=== PATIENT | male | born 1980 | race Caucasian/White ===

== ENCOUNTER 2019-11-25 10:30 | Outpatient (REF) | payer SELFPAY ==
[2019-11-25 20:06] LABS: BUN 11 mg/dL (7-18); CREATININE 0.83 mg/dL (0.70-1.30); Calcium 9.4 mg/dL (8.5-10.1); Calculated LDL 209 mg/dL (<100); Chloride 105 mmol/L (98-107); Cholesterol 274 mg/dL (<200); Glucose 108 mg/dL (74-106); HDL Cholesterol 42 mg/dL (40-60); Potassium 4.5 mmol/L (3.5-5.1); Sodium 143 mmol/L (136-145); Triglyceride 115 mg/dL (<150)
== END 2019-11-25 10:50 ==
LOC: NCHCN 10:30
PROVIDERS: PCP Nurse Practitioner Family; Visit Provider Nurse Practitioner Family
DX: E78.2 Mixed hyperlipidemia (principal)
CPT/HCPCS: 80048; 80061

== ENCOUNTER 2023-03-16 17:27 | Outpatient (REF) | payer SELFPAY ==
[2023-03-18 13:34] LABS: HSV 1 DNA Result Negative (Negative); HSV 2 DNA Result Negative (Negative); Varicella Zoster DNA Result Negative ((See Note))
== END 2023-03-16 17:28 | disposition home or self-care (01) ==
LOC: LBN 17:27
PROVIDERS: PCP Nurse Practitioner Family; Visit Provider Nurse Practitioner Family
DX: L28.2 Other prurigo (principal)
CPT/HCPCS: 87077; 87529; 87798; 87070; 87186; 87205

== ENCOUNTER 2023-03-19 14:57 | Emergency (ER) | payer SELFPAY ==
[2023-03-19] VITALS (27 sets, daily range): BP systolic 119–168; BP diastolic 67–110; PULSE 68–123; RESP 16; TEMP 36.7–37; O2SAT 95–100
--- NOTE | 2023-03-19 15:58 | W.ED.GENAD ---
HPI General Stated Complaint: RashLesion SABINE: 3 Date/Time Provider Initiated Documentation: 03/19/23 15:43. HPI Narrative: 42-year-old male presents with 1 month of progressive rash right upper extremity warm, painful, recently started on Bactrim for suspected staphylococcal infection. Also has rash on left forearm left lower extremity and lower abdomen. No family members with similar symptoms. No new clothing no new detergents. Lives at home with a dog. No mucosal involvement. Patient does have history of eczema Related Data Home Medications Medication Instructions Recorded Confirmed clindamycin HCl 300 mg capsule 300 mg PO QID 7 days #28 caps 03/19/23 gabapentin 100 mg capsule 100 mg PO DAILY 03/19/23 03/19/23 sulfamethoxazole 400 2 tab PO BID 03/19/23 03/19/23 mg-trimethoprim 80 mg tablet (Bactrim) Previous Rx's Medication Instructions Recorded clindamycin HCl 300 mg capsule 300 mg PO QID 7 days #28 caps 03/19/23 Allergies Allergy/AdvReac Type Severity Reaction Status Date / Time bacitracin Allergy Unverified 03/19/23 15:06 [From Neosporin ([id number])] neomycin Allergy Unverified 03/19/23 15:06 [From Neosporin ([id number])] polymyxin B Allergy Unverified 03/19/23 15:06 [From Neosporin ([id number])] Review of Systems Narrative: Review of Systems Constitutional: negative Eyes: negative ENT: negative Cardiovascular: negative Respiratory: negative Gastrointestinal: negative : negative Musculoskeletal: negative Skin: Rash Neurologic: negative Psych: negative PFSH All Active Problems (Updated 03/19/23 @ 20:08 by Qasim Marie MD) Cellulitis (Acute) Social History Smoking/Tobacco Use Status: Never Smoking risk assessment performed?: Yes Alcohol Intake: current Alcohol Intake frequency: holidays/special occasions only Drug use: Occasionally Substance use type: marijuana Additional Social history: unable to answer privatelty Exam Narrative Exam Narrative: Physical Examination General: alert, awake, cooperative, resting comfortably, no acute distress HEENT: normocephalic, atraumatic; PERRL, EOM intact, conjunctiva normal; no nasal discharge; moist mucous membranes, oral and pharyngeal mucosa normal, tolerating secretions Neck: supple, trachea midline; full ROM Chest: normal to inspection Respiratory: normal respiratory effort, speaking in full sentences Cardiac: Tachycardia, regular rhythm, S1S2 intact, no murmurs rubs or gallops GI: abdomen soft, non-tender, non-distended; no palpable mass or hepatosplenomegaly Skin: Confluent erythema with warmth and induration to majority of right forearm dorsum of hand with overlying crusting plaque, with some serous weeping no fluctuance no purulence no crepitus; 3 small straw-colored vesicles and 1 small straw-colored bulla dorsum of right hand; small less than 1 mm macule/ulcerations left forearm at hair follicles on left forearm, cluster of crusted papules right lower abdomen and left calf Neuro: AAOx3, normal speech, moving all extremities Extremities: Full range of motion fingers wrist elbow hand Psych: Appropriate mood and affect Course Vital Signs Vital signs: Vital Signs Temperature 37.0 C 03/19/23 15:03 Pulse 123 H 03/19/23 15:03 Respiratory Rate 16 03/19/23 15:03 Blood Pressure 168/110 H 03/19/23 15:03 Pulse Oximetry 98 03/19/23 15:03 Temperature 37.0 C 03/19/23 15:03 Temperature Source Skin 03/19/23 15:03 Pulse 123 H 03/19/23 15:03 Respiratory Rate 16 03/19/23 15:03 Respiratory Effort Normal 03/19/23 15:05 Blood Pressure 168/110 H 03/19/23 15:03 Blood Pressure Position Sitting 03/19/23 15:03 Pulse Oximetry 98 03/19/23 15:03 Oxygen Delivery Method Room Air 03/19/23 15:03 Oxygen Flow Rate 0 03/19/23 15:03 Lab/Test Results Lab/Test Results: 03/19/23 15:53 Blood Blood Culture - Pending 03/19/23 15:53 Blood Blood Culture - Pending Medical Decision Making 42-year-old male presents with progressive rash to right forearm warm indurated erythematous area of skin dorsum of hand and forearm with coalescing plaque and serous weeping, no crepitus or purulence no fluctuance. Areas of small ulcerated papules at base of hair follicles left forearm and similar appearing rash right lower abdomen and left calf with overlying crusted lesions; consider multiple areas of folliculitis, with resultant streptococcal and/or staphylococcal infection to right forearm and hand; must also consider superinfected eczema given appearance of plaque at various sites. Must also consider scabies; no petechia no purpura; patient is tachycardic however appears nontoxic. Is afebrile. Hypertension likely related to discomfort. Patient currently on Bactrim, rash began well before Bactrim initiation. No mucosal involvement to suggest Mueller-Sam's or TEN; no evidence of necrotizing fasciitis however given extent of induration erythema as well as 3 small localized straw-colored vesicles on dorsum of hand and 1 small bulla, will obtain screening x-ray of forearm and hand to assess for subcutaneous air. Starting empiric clindamycin, drawing blood cultures, inflammatory markers basic labs, fluids analgesia anti-inflammatory. Patient has appointment with dermatology tomorrow morning. Disposition pending reassessment of symptoms and results. 20: 07 labs largely unremarkable, mildly elevated inflammatory markers, negative procalcitonin, afebrile nontoxic. Heart rate greatly improved after fluids and analgesia. Consider atypical eczema versus psoriasis versus scabies versus cellulitis. X-ray negative for subcutaneous air. Patient has dermatology appointment tomorrow. Will continue on clinda. Given strict return precautions for any worsening symptoms. Quality:SDOH Health Related Social Needs: No Data to Display Discharge Plan Disposition Patient Disposition: Home Condition: Stable Discharge Details Clinical Impression: Cellulitis Primary Care Provider: Deisy Hagen ED Provider: Qasim Marie Home Meds and New Rx's Prescriptions: New clindamycin HCl 300 mg capsule 300 mg PO QID 7 Days Qty: 28 0RF No Action sulfamethoxazole-trimethoprim [Bactrim] 400-80 mg tablet 2 tab PO BID gabapentin 100 mg capsule 100 mg PO DAILY Discharge Instructions Instructions: Cellulitis (ED) Additional Instructions: Please take medication as prescribed. Follow-up closely with your assisted living administrator tomorrow. Please return the emergency department for any worsening symptoms.
[2023-03-19] MEDS: CLINDAMYCIN 600 MG/50 ML BAG 100 MG IVPB (16:25)
[2023-03-19] MEDS: Normal Saline 1,000 ML 1000 ML IV (16:25)
[2023-03-19] MEDS: ACETAMINOPHEN 1,000 MG/100 ML BTL 400 MG IVPB (16:25)
[2023-03-19 16:29] LABS: Abs Immature Grans 0.08 10^3/uL (0.0-0.06); Absolute Basophil Count 0.07 10^3/uL (0.0-0.2); Absolute Eosinophil Count 0.44 10^3/uL (0.0-0.7); Absolute Lymphocyte Count 0.96 10^3/uL (1.2-3.4); Absolute Monocyte Count 0.92 10^3/uL (0.1-0.8); Basophils % 1.1; HCT 45.6 % (40.0-50.0); HGB 15.6 g/dL (13.5-17.5); Immature Grans % 1.3; Lymphocytes % 15.3; MCH 30.9 pg (27.0-33.0); MCHC 34.2 % (32.0-36.0); MCV 90 fL (80-95); MPV 8.9 fL (8.0-11.0); Monocytes % 14.7; Neutrophils % 60.6; Platelet Count 269 10^3/uL (130-400); RBC 5.05 10^6/uL (4.36-5.78); RDW 12.3 % (11.8-14.1); RDW-SD 40.5 fL; WBC 6.27 10^3/uL (4.4-10.8)
[2023-03-19 16:31] LABS: ESR 14 mm/hr (0-15)
[2023-03-19 16:43] LABS: ALT 125 U/L (16-63); AST 66 U/L (15-37); Alkaline Phosphatase 84 U/L (46-116); Anion Gap 9.7 mmol/L (3-11); BUN 13 mg/dL (7-18); Bilirubin, Total 0.2 mg/dL (0.2-1.0); C-Reactive Protein 0.58 mg/dL (0.0-0.3); CO2 27.3 mmol/L (21.0-32.0); CREATININE 1.1 mg/dL (0.70-1.30); Calcium 9.4 mg/dL (8.5-10.1); Chloride 101 mmol/L (98-107); Estimated GFR 84.89 (mL/min/1.73m2); Glucose 97 mg/dL (74-106); Potassium 3.9 mmol/L (3.5-5.1); Sodium 138 mmol/L (136-145); Total Protein 8.1 g/dL (6.4-8.2)
[2023-03-19 17:00] LABS: Procalcitonin < 0.1 ng/mL
--- NOTE | 2023-03-19 18:15 | DI.RAD_ITS ---
Exam(s) XR FOREARM RT XR HUMERUS RT EXAM: XR FOREARM RT and XR humerus RT CLINICAL HISTORY: soft tissue inflam;assessing for subq gas. TECHNIQUE: 2D digital imaging was performed of the left humerus and forearm. Four views were obtain ed. AP and lateral views were obtained. COMPARISON: No priors for comparison. FINDINGS: BONES: No acute fracture is present. No bony destructive lesion is seen. Visualized portion of elbow and wrist joints are unremarkable. SOFT TISSUE: There is soft tissue swelling in the upper and lower arm. No soft tissue gas is seen. The visualized lung field is clear. No radiopaque foreign bodies are seen. IMPRESSION: 1. No acute fracture or dislocation in the humerus or forearm. 2. Soft tissue swelling seen in the upper and lower right arm. This may reflect cellulitis. 3. No soft tissue gas is present. No radiopaque foreign body is seen. DATA REPOSITORY: RADIATION DOSE DELIVERED:
[2023-03-19] MEDS: Ketorolac 15 MG/ML VIAL IVP (18:40)
[2023-03-19 18:44] LABS: MRSA PCR Negative (Negative)
--- NOTE | 2023-03-19 19:57 | DI.VRAD_ITS ---
PROCEDURE INFORMATION: Exam: XR Right Humerus Exam date and time: 03/19/2023 7:30 PM Age: 42 years old Clinical indication: Other: Soft tissue inflam; Assessing for subq gas TECHNIQUE: Imaging protocol: Radiologic exam of the right humerus. Views: 2 or more views. COMPARISON: No relevant prior studies available. FINDINGS: Bones/joints: No focal osseous lesions are identified. There is no focal osseous destruction or abnormal periosteal reaction to suggest acute osteomyelitis. There are no acute displaced fractures or subluxations. Soft tissues: There is no soft tissue gas. Findings suggest mild soft tissue swelling posterior to the right elbow. IMPRESSION: 1. No soft tissue air identified. 2. Findings suggest mild soft tissue swelling posterior to the right elbow, which could reflect cellulitis. Recommend clinical correlation. Dictated and Authenticated by: Armen Hernandez MD. Ordering:CARLTON Tripp MD
--- NOTE | 2023-03-19 19:58 | DI.VRAD_ITS ---
PROCEDURE INFORMATION: Exam: XR Right Forearm Exam date and time: 03/19/2023 7:21 PM Age: 42 years old Clinical indication: Other: Soft tissue inflam; Assessing for subq gas TECHNIQUE: Imaging protocol: Radiologic exam of the right forearm. Views: 2 views. COMPARISON: No relevant prior studies available. FINDINGS: Bones/joints: Osseous mineralization is normal. There are no inflammatory osseous erosive changes. The joint spaces are maintained without degenerative changes. No focal osseous lesions are identified. There is no focal osseous destruction or abnormal periosteal reaction to suggest acute osteomyelitis. There is no evidence for elbow joint effusion. There are no acute displaced fractures or subluxations. Soft tissues: There is no soft tissue gas. Findings suggest mild soft tissue swelling posterior to the proximal ulna and radius. IMPRESSION: 1. No soft tissue gas identified. 2. Findings suggest mild soft tissue swelling posterior to the proximal radius and ulna, which could reflect cellulitis. Recommend clinical correlation. Dictated and Authenticated by: Armen Hernandez MD. Ordering:CARLTON Tripp MD
== END 2023-03-19 20:20 | disposition home or self-care (01) ==
PROVIDERS: Emergency Provider Emergency Medicine; PCP Nurse Practitioner Family
DX: L03.116 Cellulitis of left lower limb (principal); L03.114 Cellulitis of left upper limb; L03.113 Cellulitis of right upper limb; L03.311 Cellulitis of abdominal wall
CPT/HCPCS: 80053; 84145; 85652; 87040; 87641; 96365; 96375; 99283; 73060; 73090; 85025; 86140; J0131; J0737; J1885

== ENCOUNTER 2023-05-19 09:03 | Outpatient (REF) | payer SELFPAY ==
[2023-05-19 14:45] LABS: Hemoglobin A1C 5.5 % (<5.7)
[2023-05-19 14:53] LABS: ALT 36 U/L (16-63); AST 21 U/L (15-37); Albumin 4.1 g/dL (3.4-5.0); Alkaline Phosphatase 61 U/L (46-116); Anion Gap 8.8 mmol/L (3-11); BUN 13 mg/dL (7-18); Bilirubin, Total 0.3 mg/dL (0.2-1.0); CO2 27.2 mmol/L (21.0-32.0); CREATININE 0.8 mg/dL (0.70-1.30); Calcium 9.3 mg/dL (8.5-10.1); Calculated LDL 183 mg/dL (<100); Chloride 105 mmol/L (98-107); Cholesterol 270 mg/dL (<200); Estimated GFR 111.92 (mL/min/1.73m2); Glucose 108 mg/dL (74-106); HDL Cholesterol 48 mg/dL (40-60); Potassium 4.2 mmol/L (3.5-5.1); Sodium 141 mmol/L (136-145); Total Protein 7.5 g/dL (6.4-8.2); Triglyceride 199 mg/dL (<150)
== END 2023-05-19 09:04 | disposition home or self-care (01) ==
LOC: NCHCN 09:03
PROVIDERS: PCP Nurse Practitioner Family; Referring Provider Family Medicine; Visit Provider Family Medicine
DX: I10 Essential (primary) hypertension (principal)
CPT/HCPCS: 80053; 80061; 83036

== ENCOUNTER 2024-03-17 09:30 | Outpatient (REF) | payer OTHER, SELFPAY ==
--- OUTSIDE RECORDS SUMMARY | 2024-03-17 09:33 | XMS_ITS | Encounter Summary ---
[place] [address] Care Team Providers Care Button Maker Name Role Phone Kirit Ashraf MD Primary Care Provider [phone] Reason for Visit * Reason Comments Low Back Pain Encounter Details Date Type Department Care Team (Latest Contact Info) Description 06/04/2016 10:40 AM EDT Office [place] [address] Shamar Chaney MD [facility] [place] [address] Lumbosacral radiculopathy at S1 Social History Tobacco Use Types Packs/Day Years Used Date Smoking Tobacco: Former Smokeless Tobacco: Never Comments:quit 10 years ago Alcohol Use Standard Drinks/Week Comments Yes 6 (1 standard drink = 0.6 oz pur e alcohol) Sex and Gender Information Value Date Recorded Sex Assigned at Not on file Gender Identity Not on file Sexual Orientation Not on file documented as of this encounter Progress Notes * Shamar Chaney MD - 06/04/2016 10:[address] Kirit Ashraf [address] [address] [address] Ashraf: I had the pleasure of seeing this patient back in followup. SPINE PROCEDURE: Right L5-S1 microdiskectomy with large disk herniation involving part of the end plate on 05/20/2016 without complication. DIAGNOSES: 1. Right lower extremity S1 radiculopathy, severe with weakness, fortified gastroc, as well as numbness. 2. History of chronic back pain at base of his spine. SUMMARY AND PLAN: I had the pleasure of seeing this patient back in followup. He has done quite well postoperatively. His incision is clean, dry, and intact. He has weakness with a single heel raise consistent with surgery but improved. Negative straight leg raise. He has numbness on the outside of his foot. He is scheduled for PT next Thursday. He is going to work on proprioception as well as strengthening and work with a physical therapist. I have asked him to be excused from work for 2 weeks and work with the therapist. If he is doing better, he can contact us and we can get him back to work sooner. All questions were answered. Shamar Chaney MD MS Animator - Orthopedic Spine Surgery / Spine Center Type Copy Examiner - Department of Orthopedic Surgery / [employer] Administrative Receptionist - [facility] 06/04/2016 documented in this encounter Plan of Treatment Not on file documented as of this encounter Visit Diagnoses Diagnosis Lumbosacral radiculopathy at S1 Thoracic or lumbosacral neuritis or radiculitis, unspecified documented in this encounter Care Teams Button Maker Relationship Specialty Start Date End Date Kirit Ashraf MD [address] [place] [address] PCP - General Family Medicine 04/23/16 02/23/18 documented as of this encounter
--- OUTSIDE RECORDS SUMMARY | 2024-03-17 09:33 | XMS_ITS | Encounter Summary ---
[place] [address] Care Team Providers Care Gas Main Fitter Helper Name Role Phone Kirit Ashraf MD Primary Care Provider [phone] Reason for Visit * Reason Onset Date Comments Pre Procedure Call 05/02/2016 re medication holds preop, opioid consent, non opioid pain mgmt strategies, and risk asmt Encounter Details Date Type Department Care Team (Late st Contact Info) Description 05/02/2016 Telephone [place] [address] Salma Del Toro, RN Pre Procedure Call (re medication holds preop, opioid consent, non opioid pain mgmt strategies, and risk asmt) Social History Tobacco Use Types Packs/Day Years Used Date Smoking Tobacco: Former Smokeless Tobacco: Never Comments:quit 10 years ago Alcohol Use Standard Drinks/Week Comments Yes 0 (1 standard drink = 0.6 oz pur e alcohol) occasional use Sex and Gender Information Value Date Recorded Sex Assigned at Not on file Gender Identity Not on file Sexual Orientation Not on file documented as of this encounter Miscellaneous Notes * Telephone Encounter - Salma Del Toro RN - 05/02/2016 9:57 AM EST Met with pt today following the surgical evaluation, advised pt of need to hold anticoagulants, NSAIDs, ASA products, and FishOil for ~10 days preoperatively. Reviewed medication list. Patient is not noted to be on any anticoagulants, fish oil or ASA Patient agreed to hold Ibuprofen and other NSAIDS as instructed. Opioid PDMP 05/02/2016 [place] PDMP Query Date 05/02/2016 Comment 05/02/16 1 yr query run; no report found [place] PDMP Query Date 05/02/2016 Comment 05/02/16 1 yr query run; No concerns noted. Opioid Risk Asmt Performed and documented. Score: Low Risk with a score of 1 secondary to age. Patient received and signed Acute Opioid Therapy Informed Consent. Reviewed salient points with pt.Pt denies any questions or concerns. Consent form passed to OR car designer for scanning. Reviewed with pt the non opioid pain mgmt strategies that should be put in place both pre and postoperatively to minimize opioid use; strategies include: activity modification, regular Acetaminophen & Ibuprofen use, ice application for local analgesia, regular rest periods, and relaxation. Explained that the non-opioid pain mgmt strategies noted above are the first line to assist with their postop pain; that the opioid pain medication that will be ordered is to be used to supplement the non-opioid methods. Advised pt that he is to take the least amt of opioid possible and the intent is to reduce use as the postoperative pain subsides. Explained that he should never exceed the prescribed amt without obtaining authorization from someone on the surgical care team. Explained that thegoal is not to be pain free but rather have the postoperative pain manageable to allow for the the expected restricted activities. Copy of [facility] Preoperative Reference sheet provided to pt; reviewed the documented educational information with pt. Copy of the [facility] Prescription Refill policy given and reviewed with pt. Pt verbalized understanding of the information reviewed.. Pt has Spine Center Nursing contact information; encouraged to call pre or postoperatively with any questions or concerns. documented in this encounter Plan of Treatment Not on file documented as of this encounter Visit Diagnoses Not on filedocumented in this encounter Care Teams Gas Main Fitter Helper Relationship Specialty Start Date End Date Kirit Ashraf MD [address] [place] [address] PCP - General Family Medicine 04/23/16 02/23/18 documented as of this encounter
--- OUTSIDE RECORDS SUMMARY | 2024-03-17 09:33 | XMS_ITS | Encounter Summary ---
[place] [address] Care Team Providers Care Cone Runner Name Role Phone Kirit Ashraf MD Primary Care Provider [phone] Reason for Visit * Reason Onset Date Comments Follow-up 05/23/2016 checking in on p t postoperatively Encounter Details Date Type Department Care Team (Late st Contact Info) Description 05/23/2016 Telephone [place] [id number] Salma Del Toro, RN Follow-up (checking in on pt postoperatively) Social History Tobacco Use Types Packs/Day Years [...] Notes * Telephone Encounter - Salma Del Toro, RN - 05/23/2016 12:24 PM EST Call placed to pt on Dr Chaney's behalf to check how he's doing postoperatively. Mr Junior is s/p Decompression, Discectomy L5-S1 on Tu05/20/[address] Chaney for L5-S1 HNP. Pt has scheduled FU 06/04/16. Pt reports he is doing quite well; Reports POD # 3 is much better than # 2. Reports preoperatively right leg pain is improved; N/T in right foot remains present but is improved. Pt is up ambulating regularly and is taking minimal amts of opioids, Reports has reduced use of oxycodone 5 mg to twice daily. Reports plans to remove original surgical drsg later today. Reviewed care with re to incision. Pt has not moved bowels since surgery; denies pain or distention. Povided [place] with some suggestions re fluid intake, increased fruit/fiber and OTC medications. 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 Explained that if he feels prepared to return to work in advance of the 4 wks, that he can discuss this with Dr Chaney on 06/04 or he can call the [facility] office anytime M_F 8-5 and we will help facilitate Advised pt that next week, if he considers his job demands and his functional status, and thinks he would benefit from physical therapy to facilitate a smoother RTW transition ~ 4 wks post op, to call and we can facilitate a external PT referral/ Pt verbalized understanding and will call [place] with any questions or concerns. documented in this encounter Plan of Treatment Not on file documented as of this encounter Visit Diagnoses Not on filedocumented in this encounter Care Teams Cone Runner Relationship Specialty Start Date End Date Kirit Ashraf MD [address] [place] [address] PCP - General Family Medicine 04/23/16 02/23/18 documented as of this encounter
--- OUTSIDE RECORDS SUMMARY | 2024-03-17 09:33 | XMS_ITS | Referral Summary ---
Author Organization [facility] Address [address] [place] [id number] Care Team Providers Care Veterans Service Officer Name Role Phone Unknown, Provider Primary Care Provider Unava ilable Social History Tobacco Use Types Packs/Day Years Used Date Smoking Tobacco: Never Assessed Sex and Gender Information Value Date Recorded Sex Assigned at Not on file Legal Sex Male 18:13 EST Gender Identity Not on file Sexual Orientation Not on file Plan of Treatment Not on file Care Teams Veterans Service Officer Relationship Specialty Start Date End Date Unknown, Provider, PCP - General 05/05/16
--- OUTSIDE RECORDS SUMMARY | 2024-03-17 09:33 | XMS_ITS | Encounter Summary ---
[place] [address] Care Team Providers Care Anesthesiology Faculty Name Role Phone Shiela Hirsch MD Primary Care Provider [phone] Encounter Details Date Type Department Care Team (Latest Contact Info) Description 03/20/2023 Travel Social History Tobacco Use Types Packs/Day Years Used Date Smoking Tobacco: Former Smokeless Tobacco: Never Comments:quit 10 years ago Alcohol Use Standard Drinks/Week Comments Yes 6 (1 standard drink = 0.6 oz pur e alcohol) Sex and Gender Information Value Date Recorded Sex Assigned at Not on file Gender Identity Not on file Sexual Orientation Not on file documented as of this encounter Plan of Treatment Not on file documented as of this encounter Visit Diagnoses Not on filedocumented in this encounter Care Teams Anesthesiology Faculty Relationship Specialty Start Date End Date Shiela Hirsch MD [address] [place] [address] PCP - General Family Medicine 03/20/23 documented as of this encounter
--- OUTSIDE RECORDS SUMMARY | 2024-03-17 09:33 | XMS_ITS | Encounter Summary ---
Author Organization [facility] Address [facility] [place] [address] Care Team Providers Care Advertising Statistical Clerk Name Role Phone Kirit Ashraf MD Primary Care Provider Encounter Details Date Type Department Care Team (Latest Contact Info) Description 04/30/2016 - 04/30/2016 11:59 PM EST Hospital Encounter Radiology Library at [facility] [place] [address] Shamar Chaney MD [facility] [place] [address] Pain Discharge Disposition: Home Social History Tobacco Use Types Packs/Day Years Used Date Smoking Tobacco: Former Smokeless Tobacco: Never Comments:quit 10 years ago Sex and Gender Information Value Date Recorded Sex Assigned at Not on file Gender Identity Not on file Sexual Orientation Not on file documented as of this encounter Medications at Time of Discharge Medication Sig Dispensed Refills Start Date End Date acetaminophen (TYLENOL) 500 mg Tablet Take 1,000 mg by mouth every 6 hours as needed for Pain. oxyCODONE (ROXICODONE) 5 mg Tablet Take 1 tablet by mouth every 4 hours as needed. 40 tablet 05/20/2016 06/04/2016 gabapentin (NEURONTIN) 100 mg Capsule Take 100 mg by mouth 3 times daily. Reported on 05/02/2016 0 04/22/2016 05/26/2016 predniSONE (DELTASONE) 20 mg Tablet Take 20 mg by mouth daily. 0 04/21/2016 05/02/2016 triamcinolone (KENALOG) 0.1 % Cream apply topically to affected area twice a day 0 02/04/2016 05/20/2016 ibuprofen (ADVIL;MOTRIN) 200 mg Tablet Take 600 mg by mouth every 6 hours as needed for Pain. 03/27/2023 documented as of this encounter Plan of Treatment Not on file documented as of this encounter Procedures Procedure Name Priority Date/Time Associated Diagnosis Comments FILM LIBRARY STORAGE ONLY MR SPINE Routine 04/30/2016 12:00 AM EST Pain documented in this encounter Results * Film Library- Storage Only MR Spine (04/30/2016 12:00 AM EST) Narrative [facility] - 04/30/2016 4:11 PM EST This exam is for storage only and is auto-finalizing. Shamar Chaney MD [facility] FILM LIBRARY ORD ERABLES [place], [place] documented in this encounter Visit Diagnoses Diagnosis Pain Generalized pain documented in this encounter Care Teams Advertising Statistical Clerk Relationship Specialty Start Date End Date Kirit Ashraf MD [address] [place] [address] PCP - General Family Medicine 04/23/16 02/23/18 documented as of this encounter
--- OUTSIDE RECORDS SUMMARY | 2024-03-17 09:33 | XMS_ITS | Encounter Summary ---
Author Organization [facility] Address [address] [place] [address] Care Team Providers Care Signal Operator Technical Name Role Phone Unknown, Provider Primary Care Provider Gracia ilanusha Encounter Details Date Type Department Care Team (Late st Contact Info) Description 03/17/2023 Lab Requisition [facility] Pathology & Laboratory Medicine - [facility] [address], [place] [id number] Outr Resulting Lab, Provider Social History Tobacco Use Types Packs/Day Years [...] Procedure Name Priority Date/Time Associated Diagnosis Comments VARICELLA ZOSTER VIRUS MOLECULAR DETECTION, PCR Routine 03/16/2023 14:45 EST HSV (HERPES SIMPLEX VIRUS) MOLECULAR DETECTION, PCR Routine 03/16/2023 14:45 EST documented in this encounter Results * VARICELLA ZOSTER VIRUS MOLECULAR DETECTION, PCR (03/16/2023 14:45 EST) VARICELLA ZOSTER VIRUS MOLECULAR DETECTION, PCR Negative Negative, Invalid 03/18/2023 13:28 EST [facility] Comment: This test was developed and its performance characteristics determined by [facility]. It has not been cleared or approved by the US Food and Drug Administration. FDA does not require this test to go through premarket FDA review. This test is used for clinical purposes. It should not be regarded as investigational or research. This laboratory is certified under the Clinical Laboratory Improvement Amendments (CLIA) as qualified to perform high complexity clinical laboratory testing. Swab UPPER LIMB STRUCTURE / Unknown 03/16/2023 14:45 EST 03/17/2023 21:45 EST us Provider Outr Resulting Lab MICROBIOLOGY - GENER AL ORDERABLES Final Result Performing Organization Address City/[facility] Co de Phone Number [facility] [address] [place] [address] * HSV (HERPES SIMPLEX VIRUS) MOLECULAR DETECTION, PCR (03/16/2023 14:45 EST) Herpes Simplex Virus Molecular Detection 1, PCR Negative Negative 03/18/2023 13:28 EST [facility] Herpes Simplex Virus Molecular Detection 2, PCR Negative Negative 03/18/2023 13:28 EST [facility] Swab UPPER LIMB STRUCTURE / Unknown 03/16/2023 14:45 EST 03/17/2023 21:45 EST us Provider Outr Resulting Lab MICROBIOLOGY - GENER AL ORDERABLES Final Result Performing Organization Address City/[facility] Co de Phone Number [facility] [address] [place] [address] documented in this encounter Visit Diagnoses Not on filedocumented in this encounter Care Teams Signal Operator Technical Relationship Specialty Start Date End Date Unknown, Provider, PCP - General 05/05/16 documented as of this encounter
--- OUTSIDE RECORDS SUMMARY | 2024-03-17 09:33 | XMS_ITS | Encounter Summary ---
[place] [address] Care Team Providers Care Production Machinist Name Role Phone Shiela Hirsch MD Primary Care Provider [phone] Encounter Details Date Type Department Care Team (Latest Contact Info) Description 03/27/2023 Travel Social History Tobacco Use Types Packs/Day [...] on filedocumented in this encounter Care Teams Production Machinist Relationship Specialty Start Date End Date Shiela Hirsch MD [address] [place] [address] PCP - General Family Medicine 03/20/23 documented as of this encounter
--- OUTSIDE RECORDS SUMMARY | 2024-03-17 09:33 | XMS_ITS | Encounter Summary ---
Author [facility] [place] [address] Care Team Providers Care Manufacturer Agent Name Role Phone Kirit Ashraf MD Primary Care Provider Reason for Visit * Reason Comments Follow-up Encounter Details Date Type Department Care Team (Latest Contact Info) Description 05/02/2016 8:40 AM EST [place] [address] Shamar Chaney MD [facility] [place] [address] Lumbosacral radiculopathy at S1 Social History Tobacco [...] Progress Notes * Shamar Chaney MD - 05/02/2016 8:40 AM EST Images from the original note were not included. May 02, 2016 Kirit Ashraf MD [address] Ashraf, I had the pleasure of seeing this patient back in followup for surgical consultation at [facility] for chief complaint of right lower extremity radiculopathy in an S1 distribution. DIAGNOSIS: 1. Right lower extremity S1 radiculopathy, severe with weakness. 2. History of chronic back pain, base of spine. This is an update and visit. The patient returned and we reviewed together his MRI, which shows an L5-S1 disk herniation with caudad migration severely compressing the traversing the S1 nerve root. He remains standing today. He is unable to sit and sleep. He has continued weakness of his gastroc. The primary reason for his visit today was counseling around surgical intervention. I explained to him using the models and images to explain the microdiskectomy. We discussed the risk of spinal fluid leak, recurrent disk herniation, persistent neuropathic pain and persistent weakness and numbness. I explained the procedure in detail, including the incision of the approach access to the spinal canal, movement of the nerve roots and removal of the free fragment. We talked about the preoperative and postoperative course and reasonable expectations concerning his work status. He does do most of his work on a computer and standing. However, I would like him to take off 4 weeks minimum. I would like to see him back in 2 weeks for reevaluation and possible reevaluation by physical therapy. More than 50% of 45 minutes were utilized around counseling, as above, answering all questions. We will schedule him at the next possible date. Consents are reviewed and signed. Narcotic consent was also obtained as part of the counseling process. Spine Center Response Trends Patient-reported scores: myD-H Spine Questionnaire responses 04/25/2016 VR36 - Physical Function (Range: 0-100) 21.9 VR36 - Bodily Pain (Range: 0-100) 23.3 VR36 - PCS (Range: 0-100) 32.1 VR36 - MCS (Range: 0-100) 43.7 Oswestry Disability Index (Range: 0-100) 68 (Crippled) documented in this encounter Plan of Treatment Not on file documented as of this encounter Visit Diagnoses Diagnosis Lumbosacral radiculopathy at S1 Thoracic or lumbosacral neuritis or radiculitis, unspecified documented in this encounter Care Teams Manufacturer Agent Relationship Specialty Start Date End Date Kirit Ashraf MD [address] [place] [address] PCP - General Family Medicine 04/23/16 02/23/18 documented as of this encounter
--- OUTSIDE RECORDS SUMMARY | 2024-03-17 09:33 | XMS_ITS | Clinical Summary ---
Author Organization [facility] Address [facility] [place] [address] Care Team Providers Care Sole Splitter Name Role Phone Shiela Hirsch MD Primary Care Provider [phone] Allergies Active Allergy Reactions Criticality Noted Date Comments Hydrocortisone Rash 04/25/2016 Medications Medication Sig Dispensed Refills Start Date End Date Status acetaminophen (TYLENOL) 500 mg Tablet Take 1,000 mg by mouth every 6 hours as needed for Pain. Active gabapentin (NEURONTIN) 100 mg Capsule Take 1 capsule by mouth 2 times daily. 60 capsule 1 05/26/2016 Active Additional Information Patient not taking.Reported on 03/20/2023 triamcinolone (Kenalog) 0.1 % Cream Apply thin layer topically to affected areas on a twice daily basis. 80 g 1 03/20/2023 Active predniSONE (Deltasone) 20 mg tablet Take 4 tablets by mouth daily (80 mg) for 3 days starting with the first dose this evening and then every morning for 2 more doses, then decrease to 3 tablets by mouth daily (60mg) every morning for 5 days, then 2 tablets by mouth daily (40mg) for 5 days, then 1 tablet by mouth daily (20mg) for 5 days, then 1 tablet by mouth (20mg) every other day for 1 week then discontinue. 48 tablet 03/20/2023 Active Active Problems Problem Noted Date Diagnosed Date Lumbosacral radiculopathy at S1 04/25/2016 Social History Tobacco Use Types Packs/Day Years Used Date Smoking Tobacco: Former Smokeless Tobacco: Never Comments:quit 10 years ago Alcohol Use Standard Drinks/Week Comments Yes 6 (1 standard drink = 0.6 oz pur e alcohol) Sex and Gender Information Value Date Recorded Sex Assigned at Not on file Gender Identity Not on file Sexual Orientation Not on file Last Filed Vital Signs Vital Sign Reading Time Taken Comments Blood Pressure 123/81 05/20/2016 10:01 AM EST Pulse 85 05/20/2016 9:45 AM EST Temperature 37 ??C (98.6 ??F) 05/20/2016 9:45 AM EST Respiratory Rate 16 05/20/2016 9:45 AM EST Oxygen Saturation 99% 05/20/2016 10:01 AM EST Inhaled Oxygen Concentration - - Weight 108.4 kg (239 lb) 05/20/2016 6:14 AM EST Height 188 cm (6' 2) 05/20/2016 6:14 AM EST Body Mass Index 30.69 05/20/2016 6:14 AM EST Plan of Treatment Health Maintenance Due Date Last Done Comments CT Colonography 1978 Colonoscopy 1978 Colorectal Cancer Screening 1978 FIT DNA 1978 FIT 1978 Sigmoidoscopy (10 year) with FIT yearly 1978 Sigmoidoscopy 1978 HIV screen 1996 Hepatitis C Screening 1996 Lipid Screening 1996 Hepatitis B vaccine (0-59 yrs) (1) 1997 Tetanus/Diphtheria/Pertussis Vaccines (1 - Tdap) 08/25 Covid-19 Vaccine (1 - season) 2023 Influenza (Flu) vaccine (1 o f 1 - Influenza standard series) 11/15/2023 Advance Directives * Full Code (Latest Code Status on File) Date Activated Date Inactivated Comments 05/20/2016 6:59 AM 05/20/2016 2:10 PM Question Answer Comments Does patient have capacity to make decision: Yes Care Teams Sole Splitter Relationship Specialty Start Date End Date Shiela Hirsch MD [address] [place] [address] PCP - General Family Medicine 03/20/23
--- OUTSIDE RECORDS SUMMARY | 2024-03-17 09:33 | XMS_ITS | Encounter Summary ---
[place] [address] Care Team Providers Care Farm Machinery Mechanic Name Role Phone Kirit Asrhaf MD Primary Care Provider Encounter Details Date Type Department Care Team (Late st Contact Info) Description 05/02/2016 10:20 AM EST Laboratory [place] [id number] Social History Tobacco Use Types Packs/Day Years [...] on filedocumented in this encounter Care Teams Farm Machinery Mechanic Relationship Specialty Start Date End Date Kirit Ashraf MD [address] [place] [id number] PCP - General Family Medicine 04/23/16 02/23/18 documented as of this encounter
--- OUTSIDE RECORDS SUMMARY | 2024-03-17 09:33 | XMS_ITS | Encounter Summary ---
[facility] [place] [address] Care Team Providers Care Jackhammer Splitter Operator Name Role Phone Shiela Hrisch MD Primary Care Provider [phone] Reason for Visit * Reason Comments Rash * Consultation (Routine) - Closed Specialty Diagnoses / Procedures Referred By Contalma t Referred To Contact Dermatology Diagnoses Other prurigo Rina Messer, SANDSTONE INSPECTOR REPAIRER [address] [place] [address] Edward Dennis MD [address] [place] [address], [facility] [place] [address] Referral ID Status Reason Start Date Expiration Date Visits Re quested Visits Authorized [id number] Closed 03/19/2023 03/18/2024 1 1 Encounter Details Date Type Department Care Team (Late st Contact Info) Description 03/20/2023 2:45 PM EST Office Visit Dermatology at [address] [address] Edward Dennis MD [address] [place] [address], [facility] [place], [place] [id number] Spongiotic dermatitis Social History Tobacco Use Types Packs/Day Years [...] as of this encounter Progress Notes * Edward Dennis MD - 03/20/2023 2:45 PM EST Problem: 1. New patient, initial visit 2. Skin skin rash of arms Geln is comes in today with his , Gabi. For the last month he been having a worsening rash right upper extremity and is now starting to develop lesions on the legs chest and left arm. 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 He is otherwise in good health. Over the last monththe rash is gotten progressively worse with multiple very itchy and sore vesicles on the right arm starting first around his knuckles and then extending. There is been associated swelling. More recently he has had involvement with new vesicles developing on his krueger localized areas on the chest andback. He has been seen multiple times by different providers and most recently at the emergency room at [facility]. He was given clindamycin for suspected cellulitis. He has been on 4 different antibiotics over the last month without any significant improvement. Patient has a life long history of intermittent eczema but just relatively mild involvement. He has used triamcinolone with success he has not changed his soaps or detergents. He uses fragrance free skin care products. He was to his now 3 months ago and 1 month ago he went on a 2-day trip to the [facility] but the rash had already started at that time. He was given at 1 point a prescription for prednisone 20 mg a day for 5 days but only took 2 and half days of this course because he was told to stop it. He did not notice much improvement. His only current medication is clindamycin which was started last night after the visit to the [facility] ER. Patient seen in consultation from his PCP. Physical examination reveals a pleasant 42-year-old gentleman who has a diffuse plaque involving the entire right dorsal forearm spongiotic papules with serous oozing extending from the dorsum of hishand up to just above his elbow. There is swelling and edema is affected extremity. He has less inflammation of the left anterior krueger where he has roughly a 4 x 6 cm spongiotic dermatitic plaque. Assessment plan: Eczematous dermatitis /spongiotic dermatitis flare starting on the right forearm now with auto eczematization and generalization dermatitis 1. Begin prednisone 20 mg taking 4 p.o. daily x 3 days. (80 mg). Start taking the first dose this evening and then every morning for for 2 more doses, then decrease to 60 mg p.o. every morning for 5 days, then 40 mg p.o. daily for 5 days,, then 20 mg p.o. daily For 5 days, then take 20 g every other day for 1 week then discontinue. Dispense 1 course. 2. Begin wet-to-dry dressings using T-shirt in warm water. Allow to dry then removed tissue apply triamcinolone cream which she has at home, and rewrap with again moistened T-shirt repeat several times during the day until bruising and swelling decreased. 3. Continue to keep arm elevated while at home. 4. No evidence of cellulitis, although there would clearly be some colonization of the open draining serous fluid covered plaques. 5. Return to clinic in 1 week for repeat check. 6. We will call in prescription for triamcinolone 0.1% cream apply to affected areas on a twice daily basis dispense 80 g tube with 1 refill.. Note: In review of his PCPs notes, photographs are seen demonstrate a tattoo present on that right dorsal forearm. I did not asked the patient if the tattoo was new. CC: Shiela Hirsch MD documented in this encounter Plan of Treatment Not on file documented as of this encounter Visit Diagnoses Diagnosis Spongiotic dermatitis Contact dermatitis and other eczema, due to unspecified cause documented in this encounter Care Teams Jackhammer Splitter Operator Relationship Specialty Start Date End Date Shiela Hirsch MD [address] [place] [address] PCP - General Family Medicine 03/20/23 documented as of this encounter
--- OUTSIDE RECORDS SUMMARY | 2024-03-17 09:33 | XMS_ITS | Encounter Summary ---
[place] [address] Care Team Providers Care Fire Prevention Specialist Name Role Phone Kirit Ashraf MD Primary Care Provider [phone] Reason for Visit * Auth/Cert Specialty Diagnoses / Procedures Referred By Contac t Referred To Contact Diagnoses HNP L5-S1 Procedures PRO LAMINOTOMY, LUMBAR DISK, 1 INTRSP LAMINOTOMY, DECOMPRESSION, FORAMINOTOMY, LUMBAR (WRVU 13.18) Referral ID Status Reason Start Date Expiration Date Visits Re quested Visits Authorized [id number] 1 1 Encounter Details Date Type Department Care Team (Late st Contact Info) Description 05/20/2016 7:30 AM EST - 05/20/2016 9:58 AM EST Surgery [place] [address] Shamar Chaney MD [facility] [place] [address] LAMINOTOMY, DECOMPRESSION, FORAMINOTOMY, LUMBAR (WRVU 12) Social History Tobacco Use Types Packs/Day Years Used Date Smoking Tobacco: Former Smokeless Tobacco: Never Comments:quit 10 years ago Alcohol Use Standard Drinks/Week Comments Yes 6 (1 standard drink = 0.6 oz pur e alcohol) Sex and Gender Information Value Date Recorded Sex Assigned at Not on file Gender Identity Not on file Sexual Orientation Not on file documented as of this encounter Last Filed Vital Signs Vital Sign Reading Time Taken Comments Blood Pressure 134/86 05/20/2016 9:45 AM EST Pulse 85 05/20/2016 9:45 AM EST Temperature 37 ??C (98.6 ??F) 05/20/2016 9:45 AM EST Respiratory Rate 16 05/20/2016 9:45 AM EST Oxygen Saturation 99% 05/20/2016 9:45 AM EST Inhaled Oxygen Concentration - - Weight 108.4 kg (239 lb) 05/20/2016 6:14 AM EST Height 188 cm (6' 2) 05/20/2016 6:14 AM EST Body Mass Index 30.69 05/20/2016 6:14 AM EST documented in this encounter Discharge Instructions * Discharge Instructions* Dora Rosales RN - 05/20/2016 10:15 AM EST Discharge instructions reviewed with patient and questions answered.Wound infection may occur at any time, but it is evident more often 4-7 days after surgery. Signs and symptoms may involve one or more of the followin. Temperature elevation of more than 2 degrees or greater than 100.5 degrees F 2. Swelling and redness in or around the incision. 3. Increasing pain or discomfort in or around the incision. 4. Red streaks in the skin near the incision. 5. Pus or other foul drainage from the incision. 6. Foul smell from the incision. 7. Generalized body chills or fever. 8. Severe pain. If you suspect an incisional infection is present, are having problems, or have additional questions or concerns, please call. * Patient Instructions* Obi Kaufman - 05/20/2016 9:47 AM EST Spine Surgery Discharge Instructions Procedure: Discectomy Allergies Allergen Reactions ??? Neosporin [Hydrocortisone] Rash MEDICATION: 1. If you need a renewal of your pain medication, please contact the [facility] Center Prescription Lineat [phone]. PRESCRIPTION RENEWAL REQUEST CAN TAKE UP TO 3 DAYS TO PROCESS SO PLEASE PLAN ACCORDINGLY. Some narcotic pain medications can not be called into your pharmacy and require the prescription to be picked up or mailed to your pharmacy. Call [phone] to speak with a Spine Center Nurse. 2. The pain medication you are on can cause constipation, so increase your intake of fluids and fiber while you are taking them. You should also take an [id number] stool softener, colace or senna, to facilitate a bowel movement. ACTIVITY: As tolerated, but no bending, or twisting and do not lift anything greater than 5 pounds. DIET: Eat your normal diet, with adequate amounts of protein and fiber. DRIVING: NO driving while you are on narcotic pain medication. SHOWER/BATH: You may shower with the operative dressing in place. Cover your gauze dressing with Tegaderm for first seven to ten days while showering. Following your shower you should remove the tegaderm and gauze dressing and reapply a lightly taped gauze dressing over your incision. Tegaderm should only be used while in the shower. Do not soak the incision in a bath or pool for 3 weeks. WOUND CARE: Keep the dressing in place for 72 hours. After 72 hours remove the dressing but keep the paper strips (steri-strips) in place. Change the dressing with a sterile gauze dressing. The steri-strips may begin to fall off, and you may remove them as they peel back. Change the dressing daily for 7- 10 days. After 10 days the wound can remain uncovered. After 14 days you should remove the steri-strips if they have not fallen off already. CALL YOUR SURGEON, IF YOU HAVE: ??? Fevers greater than 101.5* Fahrenheit ??? Chills or night sweats ??? Nausea or vomiting ??? Wound redness or discharge ??? Numbness or tingling in your hands or feet ??? Incontinence of bowel or bladder ??? Any questions or concerns If you have any questions call: Clinical issues, nurse questions: [phone] Medication renewal: [phone] Appointments for : Ritu: [phone] Future Appointments Date Time Provider Department Center 06/04/2016 10:40 AM Shamar Chaney MD [facility] documented in this encounter Medications at Time of Discharge [...] daily. Reported on 05/02/2016 0 04/22/2016 05/26/2016 ibuprofen (ADVIL;MOTRIN) 200 mg Tablet Take 600 mg by mouth every 6 hours as needed for Pain. 03/27/2023 documented as of this encounter Progress Notes * Liang Dominguez RN - 05/20/2016 12:05 PM EST Pt A+O x4, VSS, tolerating Po intake Pt able to ambulate without difficulty and feels ready for D/Mushroom Cultivator home at this time. AVS reviewed with Pt and partner and they have no questions or concerns at this time. Pt has script for oxycodone. * Niya Min RN - 05/20/2016 11:29 AM EST Pt sat EOB; stood and took a few steps to end of stretcher. Pt feeling lightheaded; returned to bedto rest. Denies nausea; pain is in good control. * Dora Rosales RN - 05/20/2016 10:35 AM EST Patient resting at present. He complains of right knee and thigh discomfort. Continue to monitor post op course. documented in this encounter H&P Notes * Obi Kaufman - 05/20/2016 5:37 AM EST The patient's history and physical exam have been reviewed. There has been no interval change from that of the pre-operative history and physical exam performed within the last 30 days. This patient is undergoing an orthopaedic surgical procedure. We will utilize nonpharmacological modalities to help with pain, however, this patient will require narcotic pain medication to treat acute, post-surgical, pain. The patient will be instructed to wean from these medications as soon as reasonably possible. The Patient has read, signed and understands the Acute Opioid Therapy Informed Consent. The Prescription Drug monitoring website has been queried and and this query recorded in the electronic medical record. Opioid PDMP 05/02/2016 [place] PDMP Query Date 05/02/2016 Comment 05/02/16 1 yr query run; no report found [place] PDMP Query Date 05/02/2016 Comment 05/02/16 1 yr query run; No concerns noted. documented in this encounter Miscellaneous Notes * Op Note - Shamar Chaney MD - 05/20/2016 12:10 PM EST Operative Note ?? Patient Name: Glen Junior : [id number] MR#: [id number] ?? Case Date: 05/20/2016 ?? Surgeon: Surgeon(s) and Role: * Shamar Chaney MD - Primary * Obi Kaufman MD ?? Preoperative diagnosis: HNP L5-S1 ?? Postoperative diagnosis: HNP L5-S1 ?? Procedure(s) (LRB): LAMINOTOMY, DECOMPRESSION, FORAMINOTOMY, LUMBAR (WRVU 13.18) (Right) ? Anesthesia: General ?? Findings: c/w disease ?? Complications: None ? Fluids: 700 Intraprocedure Crystalloid Total None ?? Estimated Blood Loss: 50cc ?? Drains: None ?? Disposition: awakened from anesthesia, extubated and taken to the recovery room in a stable condition, having suffered no apparent untoward event. ?? Condition: doing well without problems ?? Infection Bundle used? N/A INDICATIONS FOR PROCEDURE: This is a 35 y.o.-year-old male with symptomatic radiculopathy confirmed by imaging studies that has failed non-operative management. After a discussion regarding the risks and benefits of surgical diskectomy they wished to pursue operative treatment. DESCRIPTION OF PROCEDURE: Procedure: 1. Right L5-S1 Microdiscectomy. The patient was correctly identified in the same day holding area, the operative site was marked and consent was confirmed by the team. The pre-operative checklist was completed. The patient was wheeled to the operating room where a general anesthetic was administered while supine on the stretcher.The patient was then transitioned to the prone position on the Flat Top with Eleno Frame making sure all bony prominences were well padded. Preoperative antibiotics were administered by the Anesthesia team. A time-out was performed to confirm patient identity, planned surgery, and site according to the [facility] Quinter Protocol. The back was then prepped using chlorhexidine and chlorapep then draped in the usual sterile fashion after the duraprep had dried. Using the iliac wing to help define the patients anatomy an incision was marked on the skin with a marking pen after an xray was taken with a spinal needle. 8 cc's of 0.25% Marcaine with epinephrine was injected in the subcutaneous tissues before making an incision approximately 4 cm's in length directly over the proposed disk space. Soft tissue dissection continued with a scalpel followed by Bovie electrocautery to obtain hemostasis down to the level of the fascia. We proceeded with a subperiosteal dissection starting with the tip of the spinous process on the Right side, working laterally over the lamina out to the facet. The facet joint was not compromised ordebrided. A Talar retractor was placed for exposure and the undersurface of the exposed lamina was dissected and soft tissue removed using a rongeur and curette. an intraoperative xray confirmed thatwe were at the L5/S1 level. Right L5-S1 Microdiscectomy: A rongeur was used to remove a small portion of the inferior Right side medial L5 lamina and superior portion of the S1 lamina. A Kerrison was then used to continue to remove bone in a piecemeal fashion to complete the laminotomy, while preserving the pars. The ligamentum flavum was identified and carefully removed as well to provide adquate exposure. The dura was exposed to the level of the exiting Right side S1 nerve root. The dura was gently mobilized and retracted medially. Findings included encapsulated large disk fragment with several smaller pieces which was worked through a defect in the annulus. Immediately disk material extruded from the annulotomy. A pituitary was used to remove the herniated disk fragments. All exposed disk material was removed andadequately decompressed without any residual compression upon the exiting Rightside S1 nerve. The wound was then copiously irrigated and any remaining bleeding was controlled using Bovie electrocautery. A Gelfoam was placed over the dura at the laminotomy site. 0 Vicryl sutures were used to reapproximate the fascial layer in an interrupted fashion. After the fascia was closed, the wound was irrigated. The superficial wound was closed using 2-0 Vicryl sutures in a simple interrupted buried fashion followed by a running 4-0 Vicryl. 20 cc's of 0.25% Marcainewith epinephrine was then injected to assist with hemostasis and post-operative pain control. Dermab ond was applied to the wound which was then dressed with sterile 4x4s and a Tegaderm. A post-operative sign out was held. The patient was then transferred back to the stretcher and extubated without difficulty. On the stretcher he was then taken back to the same recovery area in stable condition. There were no obvious intraoperative complications at the end of the case and . All needle, sponge and instrument counts were correct at the end of the procedure. I was personally present for the entire procedure from start to finish and was involved in all aspects of the case. Shamar Chaney MD MS Ram Press Operator - Orthopedic Spine Surgery / Spine Center Receiving Weigher - Department of Orthopedic Surgery / Academics and Research Bench Jeweler - [facility] 05/20/2016 * Brief Op Note - Shamar Chaney MD - 05/20/2016 9:25 AM EST Brief Operative Note Patient Name: Glen Junior : [id number] MR#: [id number] Case Date: 05/20/2016 Surgeon: Surgeon(s) and Role: * Shamar Chaney MD - Primary * Obi Kaufman MD Preoperative diagnosis: HNP L5-S1 Postoperative diagnosis: HNP L5-S1 Procedure(s) (LRB): LAMINOTOMY, DECOMPRESSION, FORAMINOTOMY, LUMBAR (WRVU 13.18) (Right) Anesthesia: General Findings: c/w disease Complications: None Fluids: 700 Intraprocedure Crystalloid Total None Estimated Blood Loss: 50cc Drains: None Disposition: awakened from anesthesia, extubated and taken to the recovery room in a stable condition, having suffered no apparent untoward event. Condition: doing well without problems Infection Bundle used? N/A Attestation: Case Date: 05/20/2016 I was present and I participated during the entire procedure (does not need to include opening and closing). (Please see the Surgical Encounter Summary for any Implant and Specimen details pertinent to this patient.) documented in this encounter Plan of Treatment Not on file documented as of this encounter Procedures Procedure Name Priority Date/Time Associated Diagnosis Comments XR LUMBAR SPINE 1 VIEW Routine 05/20/2016 8:34 AM EST XR LUMBAR SPINE 1 VIEW Routine 05/20/2016 8:16 AM EST LAMINOTOMY, DECOMPRESSION, FORAMINOTOMY, LUMBAR (WRVU 12) 05/20/2016 7:40 AM EST Lumbosacral radiculopathy at S1 documented in this encounter Results * XR Lumbar Spine 1 View (05/20/2016 8:34 AM EST) Anatomical Region Laterality Modality L-spine N/A Digital Radiogra phy Impressions 05/20/2016 9:18 AM EST FINDINGS and IMPRESSION: The pointer projects over the inferior facet of L5 at L5-S1 level, assuming there are 5 nonrib-bearing lumbar-type vertebral bodies. Narrative 05/20/2016 9:18 AM EST EXAMINATION: XR LUMBAR SPINE 1 VIEW CLINICAL HISTORY: HNP L5-S1 TECHNIQUE: ? COMPARISON: None Procedure Note Paris Arana MD - 05/20/2016 EXAMINATION: XR LUMBAR SPINE 1 VIEW CLINICAL HISTORY: HNP L5-S1 TECHNIQUE: COMPARISON: None IMPRESSION FINDINGS and IMPRESSION: The pointer projects over the inferior facet of L5 at L5-S1 level,assuming there are 5 nonrib-bearing lumbar-type vertebral bodies. Shamar Chaney MD IMG DX ORDERABLES * XR Lumbar Spine 1 View (05/20/2016 8:16 AM EST) Anatomical Region Laterality Modality L-spine N/A Digital Radiogra phy Impressions 05/20/2016 9:16 AM EST FINDINGS and IMPRESSION: The metal pointer is at the posterior elements of S1, assuming there 5 nonrib-bearing lumbar-type vertebral bodies. ? Narrative 05/20/2016 9:16 AM EST EXAMINATION: XR LUMBAR SPINE 1 VIEW CLINICAL HISTORY: intraoperative level confirmation TECHNIQUE: ? COMPARISON: None Procedure Note Paris Arana MD - 05/20/2016 EXAMINATION: XR LUMBAR SPINE 1 VIEW CLINICAL HISTORY: intraoperative level confirmation TECHNIQUE: COMPARISON: None IMPRESSION FINDINGS and IMPRESSION: The metal pointer is at the posterior elements of S1, assuming there 5 nonrib-bearing lumbar-type vertebral bodies. Shamar Chaney MD IMG DX ORDERABLES documented in this encounter Visit Diagnoses Diagnosis Lumbosacral radiculopathy at S1- Primary Thoracic or lumbosacral neuritis or radiculitis, unspecified Lumbosacral radiculopathy at S1 Thoracic or lumbosacral neuritis or radiculitis, unspecified documented in this encounter Administered Medications Inactive Administered Medications - up to 3 most recent administrations Medication Order MAR Action Action Date Dose Rate Site acetaminophen (TYLENOL) 500 mg tablet 1 dose, Starting on Thu05/20/16 at 1024, Until Thu05/20/16 at 1028, DORA ROSALES: cabinet override acetaminophen (TYLENOL) tablet 1,000 mg 1,000 mg, Oral, EVERY 8 HOURS SCHEDULED, First dose on Thu05/20/16 at 1400, Until Discontinued, Maximum total acetaminophen dose 4 grams per 24 hours., Recovery (Recovery-Hospital Unit), Routine Given 05/20/2016 10:28 AM EST 1,000 mg bacitracin injection ONCE PRN, Starting on Thu05/20/16 at 0837, Until Thu05/20/16 at 1410, Intra-Operative (Intra-Procedure), Routine Given 05/20/2016 8:37 AM EST 50,000 Units 19- Surgical Site BUpivacaine-EPINEPHrine 0.25 %-1:200,000 injection ONCE PRN, Starting on Thu05/20/16 at 0837, Until Thu05/20/16 at 1410, Intra-Operative (Intra-Procedure), Routine Given 05/20/2016 8:37 AM EST 8 mLs 19- Surgical Site gelatin adsorbable 100 (GELFOAM) sponge ONCE PRN, Starting on Thu05/20/16 at 0837, Until Thu05/20/16 at 1410, Intra-Operative (Intra-Procedure), Routine Given 05/20/2016 8:37 AM EST 1 each 19- Surgical Site oxyCODONE (ROXICODONE) immediate release tablet 10 mg 10 mg, Oral, EVERY 4 HOURS PRN, Starting on Thu05/20/16 at 1021, Until Thu05/20/16 at 1202, Pain, moderate pain (4-6), For moderate pain (4-6). Do not exceed 15 mg in 4 hours. If pain not relieved, call provider., PACU Recovery, Routine Given 05/20/2016 10:28 AM EST 10 mg thrombin (Bovine) (THROMBINAR) kit ONCE PRN, Starting on Thu05/20/16 at 0837, Until Thu05/20/16 at 1410, Intra-Operative (Intra-Procedure) Given 05/20/2016 8:37 AM EST 20,000 Units 19- Surgical Site documented in this encounter Active and Recently Administered Medications Times are shown in EST. Scheduled Medication Order 05/18/2016 05/19/2016 05/20/2016 acetaminophen (TYLENOL) tablet 1,000 mg 1,000 mg, Oral, EVERY 8 HOURS SCHEDULED, First dose on Thu05/20/16 at 1400, Until Discontinued, Maximum total acetaminophen dose 4 grams per 24 hours., Recovery (Recovery-Hospital Unit), Routine 1028 (Given - Provid er: Dora Rosales RN) ceFAZolin (ANCEF) 3g in dextrose 5% 100 mL (COMPLETED) 3 g, Intravenous, EVERY 3 HOURS, 1 dose, First dose on Thu05/20/16 at 0630, Administer over 30 Minutes, Redose after 3 hours., Intra-Operative (Intra-Procedure), Indication for (Active or Suspected): Prophylaxis 0751 (Given - Provid er: Thaddeus Rosales CRNA) PRN Medication Order 05/18/2016 05/19/2016 05/20/2016 bacitracin injection (CANCELED) ONCE PRN, Starting on Thu7/17 at 0837, Until e 05/20/16 at 1410, Intra-Operative (Intra-Procedure), Routine 0837 (Given - Provid er: Shamar Chaney MD - Comment: Mixed in 1 L NS administered via bulb syringe.) BUpivacaine-EPINEPHrine 0.25 %-1:200,000 injection (CANCELED) ONCE PRN, Starting on e 05/20/16 at 0837, Until Thu05/20/16 at 1410, Intra-Operative (Intra-Procedure), Routine 0837 (Given - Provid er: Shamar Chaney MD) gelatin adsorbable 100 (GELFOAM) sponge (CANCELED) ONCE PRN, Starting on Thu05/20/16 at 0837, Until Thu05/20/16 at 1410, Intra-Operative (Intra-Procedure), Routine 0837 (Given - Provid er: Shamar Chaney MD - Comment: Mixed with 20,000 units Thrombin.) oxyCODONE (ROXICODONE) immediate release tablet 10 mg (CANCELED)(Linked Group 1) 10 mg, Oral, EVERY 4 HOURS PRN, Starting on Thu05/20/16 at 1021, Until 05/20/16 at 1202, Pain, moderate pain (4-6), For moderate pain (4-6). Do not exceed 15 mg in 4 hours. If pain not relieved, call provider., PACU Recovery, Routine 1028 (Given - Provid er: Dora Rosales RN) thrombin (Bovine) (THROMBINAR) kit (CANCELED) ONCE PRN, Starting on Thu05/20/16 at 0837, Until Thu05/20/16 at 1410, Intra-Operative (Intra-Procedure) 0837 (Given - Provid er: Shamar Chaney MD - Comment: Mixed with 1 Gelfoam.) Linked Groups Order Group 1: oxyCODONE (ROXICODONE) immediate release tablet 5 mg (CANCELED) 5 mg, Oral, EVERY 4 HOURS PRN, Starting on e 05/20/16 at 1021, Until Tu05/20/16 at 1202, Pain, mild pain (1-3), For mild pain (1-3). Do not exceed 15 mg in 4 hours. If pain not relieved, call provider, PACU Recovery, Routine Or oxyCODONE (ROXICODONE) immediate release tablet 10 mg (CANCELED)Jump to med 10 mg, Oral, EVERY 4 HOURS PRN, Starting on Thu05/20/16 at 1021, Until Thu05/20/16 at 1202, Pain, moderate pain (4-6), For moderate pain (4-6). Do not exceed 15 mg in 4 hours. If pain not relieved, call provider., PACU Recovery, Routine Or oxyCODONE (ROXICODONE) immediate release tablet 15 mg (CANCELED) 15 mg, Oral, EVERY 4 HOURS PRN, Starting on Thu05/20/16 at 1021, Until Thu05/20/16 at 1202, Pain, severe pain, PACU Recovery, Routine documented in this encounter Care Teams Fire Prevention Specialist Relationship Specialty Start Date End Date Kirit Ashraf MD [address] [place] [address] PCP - General Family Medicine 04/23/16 02/23/18 documented as of this encounter
--- OUTSIDE RECORDS SUMMARY | 2024-03-17 09:33 | XMS_ITS | Encounter Summary ---
[place] [address] Care Team Providers Care District Ranger Name Role Phone Kirit Ashraf MD Primary Care Provider [phone] Encounter Details Date Type Department Care Team (Latest Contact Info) Description 05/02/2016 10:20 AM EST [place] [id number] Lumbosacral radiculopathy at S1; Herniated lumbar intervertebral disc Social History Tobacco Use Types Packs/Day Years [...] Sign Reading Time Taken Comments Blood Pressure - - Pulse 95 05/02/2016 10:08 AM EST Temperature - - Respiratory Rate - - Oxygen Saturation 96% 05/02/2016 10: 08 AM EST Inhaled Oxygen Concentration - - Weight 108.6 kg (239 lb 6.4 oz) 017 10:08 AM EST Height 193 cm (6' 4) 05/02/2016 10:08 AM EST Body Mass Index 29.14 05/02/2016 10:08 AM EST documented in this encounter Progress Notes * Gregg Cartwright RN - 05/02/2016 10:20 AM EST PAT questionnaire reviewed with patient and while in Pre Admission testing. Patient has had anesthesia once in the past without complicatios. Pre-operative instruction booklet reviewed. Patient verbalizes a good understanding of all information. PLAN Testing: Blood work, T&S Special medication instructions: none Procedure date: 05-20-16 per patient. documented in this encounter Plan of Treatment Not on file documented as of this encounter Procedures Procedure Name Priority Date/Time Associated Diagnosis Comments ABORH RECHECK STATUS Routine 05/02/2016 10:50 AM EST HEMOGRAM Routine 05/02/2016 10:50 AM EST Lumbosacral radiculopathy at S1 Herniated lumbar intervertebral disc DIFFERENTIAL, AUTOMATED Routine 05/02/2016 10:50 AM EST Lumbosacral radiculopathy at S1 Herniated lumbar intervertebral disc TYPE AND SCREEN, SDP (FUTURE SURGERY, [facility] SAME DAY PROGRAM ONLY) Routine 05/02/2016 10:50 AM EST Lumbosacral radiculopathy at S1 Herniated lumbar intervertebral disc ABO/RH TYPING Routine 05/02/2016 10:50 AM EST Lumbosacral radiculopathy at S1 Herniated lumbar intervertebral disc PROTHROMBIN TIME Routine 05/02/2016 10:5 0 AM EST Lumbosacral radiculopathy at S1 Herniated lumbar intervertebral disc CBC (WITH DIFF) Routine 05/02/2016 10:50 AM EST Lumbosacral radiculopathy at S1 Herniated lumbar intervertebral disc ANTIBODY SCREEN Routine 05/02/2016 10:50 AM EST Lumbosacral radiculopathy at S1 Herniated lumbar intervertebral disc BASIC METABOLIC PANEL Routine 05/02/2016 10:50 AM EST Lumbosacral radiculopathy at S1 Herniated lumbar intervertebral disc documented in this encounter Results * ABORH Recheck Status (05/02/2016 10:50 AM EST) ABORH Recheck Order Order Placed [facility] ABORH Type Recheck Complete [facility] Blood specimen (specimen) 05/02/2016 10:50 AM EST 05/02/2016 10:54 AM EST Narrative Resulting Agency Comment Spec In Lab Shamar Chaney MD BLOOD BANK LAB ORDER YASMANY Performing Organization Address City/[facility]/ZIP Co de Phone Number [facility] [place] [address] * Antibody screen (05/02/2016 10:50 AM EST) Pathologist [facility] Ab Screen Interp Negative [facility] Expires at [id number] on: 05/23/2016 [facility] Blood specimen (specimen) 05/02/2016 10:50 AM EST 05/02/2016 10:54 AM EST Narrative Resulting Agency Comment Spec In Lab Shamar Chaney MD BLOOD BANK LAB ORDER YASMANY Performing Organization Address City/[facility]/ZIP Co de Phone Number [facility] [place] [address] * ABO/Rh Typing (05/02/2016 10:50 AM EST) Pathologist [facility] ABORH Type O Pos [facility] Blood specimen (specimen) 05/02/2016 10:50 AM EST 05/02/2016 10:54 AM EST Narrative Resulting Agency Comment Spec In Lab Shamar Chaney MD BLOOD BANK LAB ORDER YASMANY Performing Organization Address City/[facility]/ZIP Co de Phone Number [facility] [place] [address] * (ABNORMAL) Differential, Automated (05/02/2016 10:50 AM EST) Neutrophil % 63.4 % [facility] Neutrophil Absolute 5.34 1.70 - 6.10 x10(3)/mc L [facility] Lymph % 20.9 % [facility] Lymphocytes Abs 1.8 0.9 - 3.2 x10(3)/[facility] Monocyte % 10.1 % [facility] Monocyte Abs 0.8 0.3 - 0.9 x10(3)/[facility] Eos % 3.8 % [facility] Eosinophils Abs 0.3 0.0 - 0.4 x10(3)/[facility] Basophil % 0.6 % [facility] Baso Absolute 0.0 0.0 - 0.1 x10(3)/[facility] Immature Gran % 1.20 % [facility] Comment: Immature granulocytes(IG's)percentage and absolute count will include metamyelocytes, myelocytes, and promyelocytes. Blood smears from CBCs yielding IG's will be scanned manually for concordance. If this scan disagrees with the automated IG or if promyelocytes are noted, a manual differential will be performed. Immature Gran Absolute 0.10(H) 0.00 - 0.04 x10(3)/[facility] Blood specimen (specimen) 05/02/2016 10:50 AM EST 05/02/2016 11:01 AM EST Narrative Resulting Agency Comment Spec In Lab Shamar Chaney MD HEMATOLOGY ORDERABLE S Performing Organization Address City/State/[facility] Co de Phone Number [facility] [place] [address] * Hemogram (05/02/2016 10:50 AM EST) White Blood Cell 8.4 4.0 - 9.5 x10(3)/[facility] Red Blood Cell 4.67 4.58 - 5.54 x10(6)/[facility] Hemoglobin 14.7 13.7 - 16.5 gm/dL [facility] Hematocrit 42.0 40.5 - 48.5 % [facility] Mean Cell Volume 89.9 82.9 - 93.1 fL [facility] Mean Cell Hemoglobin 31.5 27.5 - 32.1 pg [facility] Mean Cell Hemoglobin Concentration 35.0 32.0 - 35.7 gm/dL [facility] Platelet 250 145 - 357 x10(3)/[facility] RDW Standard Deviation 41.8 36.0 - 45.0 fL [facility] RDW coefficient of variation 12.7 11.4 - 13.8 % [facility] Mean Platelet Volume 9.4 7.6 - 12.9 fL [facility] NRBC% auto 0.0 % [facility] NRBC Absolute 0.000 0.000 - 0.000 x10(3)/[facility] Blood specimen (specimen) 05/02/2016 10:50 AM EST 05/02/2016 11:01 AM EST Narrative Resulting Agency Comment Spec In Lab Shamar Chaney MD HEMATOLOGY ORDERABLE S [facility] [place] [phone] * (ABNORMAL) Prothrombin Time (05/02/2016 10:50 AM EST) Prothrombin Time 11.8(L) 12.0 - 15.0 sec [facility] Comment: An INR <2.0 indicates adequate procoagulant activity for hemostasis in most patients without underlying bleeding disorders, though the INR may not adequately reflect hemostatic capacity in patients with liver disease and synthetic impairment. The recommended target INR range for therapeutic anticoagulation is 2.0 ? 3.0 for most applications, though lower and higher ranges may be appropriate depending on clinical circumstances. International Normalization Ratio 0.8(L) 0.9 - 1.1 [facility] Blood specimen (specimen) 05/02/2016 10:50 AM EST 05/02/2016 11:01 AM EST Narrative Resulting Agency Comment Spec In Lab Shamar Chaney MD HEMATOLOGY ORDERABLE S [facility] [place] [address] * (ABNORMAL) Basic Metabolic Panel (non-fasting) (05/02/2016 10:50 AM EST) Glucose 100 65 - 199 mg/dL [facility] Comment:Diabetes: >=200 mg/d L plus symptoms Blood Urea Nitrogen 17 10 - 20 mg/dL [facility] Creatinine 0.82 0.80 - 1.50 mg/dL [facility] Comment: Please note that the pediatric reference intervals supplied above were not validated at [facility]. Results from pediatric patients should be interpreted in conjunction to the patient's age, height and muscle mass. Sodium 140 135 - 145 mmol/L [facility] Potassium 4.3 3.5 - 5.0 mmol/L [facility] Comment: Please note: ??Patients with WBC >100,000 may have falsely elevated Potassium levels. ??For accurate Potassium quantification in these patients send serum separator tube (gold top) for subsequent determinations. ??Contact the Clinical Chemistry Laboratory if there are any questions. Chloride 101 98 - 107 mmol/L [facility] Carbon Dioxide 22 22 - 31 mmol/L [facility] Anion Gap 17(H) 5 - 15 mmol/L [facility] Calcium 9.9 8.5 - 10.5 mg/dL [facility] Est Glomerular Filtration Rate >60 >=60 [facility] Comment: This estimated GFR (eGFR) value was calculated using the MDRD equation which has been validated on patients between the ages of 18 and 70. The MDRD should not be used to assess kidney function in patients < 18 years of age or in patients with extremes of body mass, or in patients with acute kidney failure. This value should be multiplied by 1.2 for patients. For further information please copy and paste the following links into your internet browser. http://SupplyFrame/DHnkdep http://SupplyFrame/DHMCnkf Blood specimen (specimen) 05/02/2016 10:50 AM EST 05/02/2016 11:01 AM EST Narrative Resulting Agency Comment Spec In Lab Shamar Chaney MD CHEMISTRY ORDERABLES [facility] [place] [address] documented in this encounter Visit Diagnoses Diagnosis Lumbosacral radiculopathy at S1 Thoracic or lumbosacral neuritis or radiculitis, unspecified Herniated lumbar intervertebral disc Displacement of lumbar intervertebral disc without myelopathy documented in this encounter Care Teams District Ranger Relationship Specialty Start Date End Date Kirit Ashraf MD [address] [place] [id number] PCP - General Family Medicine 04/23/16 02/23/18 documented as of this encounter
--- OUTSIDE RECORDS SUMMARY | 2024-03-17 09:33 | XMS_ITS | Encounter Summary ---
Author Organization [facility] Address [address] [place] [address] Care Team Providers Care Fur Examiner Name Role Phone Unknown, Provider Primary Care Provider Unava ilable Encounter Details Date Type Department Care Team (Late st Contact Info) Description 04/30/2016 Historical Results Only [facility] Radiology Results [address] [place] [address] Kirit Ashraf MD Social History Tobacco Use Types Packs/Day Years [...] Procedure Name Priority Date/Time Associated Diagnosis Comments MR LUMBAR SPINE WO CONTRAST 04/30/2016 9:15 EST documented in this encounter Results * MR LUMBAR SPINE WO CONTRAST (04/30/2016 9:15 EST) Anatomical Region Laterality Modality Other 04/30/2016 9:15 EST Narrative 04/30/2016 9:23 EST ? EXAM: MAGNETIC RESONANCE IMAGING/LUMBAR S EX. D/ ([id number]) ? CLINICAL INFORMATION: ? M54.16 RIGHT LUMBAR RADICULOPATHY ? SUSPICIOUS ACUTE DISC HERNIATION W/ NERVE ROOT ? COMPRESSION L5-S1 ? INDICATION: M54.16 RIGHT LUMBAR RADICULOPATHY: SUSPICIOUS ACUTE DISC ? HERNIATION W/ NERVE ROOT RADICULOPATHY ? TECHNIQUE: ??Multiplanar multisequence MR imaging of the lumbar spine ? was obtained without contrast. ? COMPARISON: None. ? FINDINGS: The lumbar spine is well aligned. The lumbar vertebral ? bodies maintain normal height. The paraspinal soft tissues are normal ? in appearance. The tip of the conus medullaris terminates at the L1 ? vertebral body level. There is loss of T2 disc signal at L4-L5 and ? L5-S1 levels. The upper lumbar disks are preserved. ? At the L5/S1 level, there is a right paracentral disc extrusion which ? extends approximately 14 mm caudad to the disc base and compresses ? the right S1 nerve root in the lateral recess. Additionally, there is ? mild to moderate hypertrophic facet arthrosis. There is moderate ? bilateral neural foraminal stenosis. ? At the L4/5 level, there is disc degeneration and a small disc bulge. ? Mild hypertrophic facet arthrosis is present. There is a small ? Schmorl's node in the inferior endplate of L4 and there are Modic ? type II endplate changes at the L4-L5 disc space. There is minimal ? central canal stenosis and mild bilateral neural foraminal stenosis. ? At the L3/4 level, the posterior disc contour is preserved. There is ? minimal facet arthrosis. No central canal or neural foraminal ? stenosis is present. ? IMPRESSION: ? 1. L5-S1: Right paracentral disc extrusion compresses the right S1 ? nerve root. Moderate bilateral foraminal stenosis. ? 2. L4-L5: Disc degeneration. Minimal central canal stenosis and mild ? bilateral foraminal stenosis ? Additional findings as discussed above. ? REPORT SIGNED IN OTHER VENDOR SYSTEM 04/30/2016 ?Reported By: Justus Myers MD ? CC: ? Transcribed Date/Time: 04/30/2016 (0923) ? Credit Collections Manager: [email or web address] ? Printed Date/Time: 08/28/2018 (1809) ? PAGE 1 ? Signed Report ? Procedure Note Justus Myers E - 01/19/2019 EXAM: MAGNETIC RESONANCE IMAGING/LUMBAR S EX. D/ ([id number]) CLINICAL INFORMATION: M54.16 RIGHT LUMBAR RADICULOPATHY SUSPICIOUS ACUTE DISC HERNIATION W/ NERVE ROOT COMPRESSION L5-S1 INDICATION: M54.16 RIGHT LUMBAR RADICULOPATHY: SUSPICIOUS ACUTEDISC HERNIATION W/ NERVE ROOT RADICULOPATHY TECHNIQUE: Multiplanar multisequence MR imaging of the lumbarspine was obtained without contrast. COMPARISON: None. FINDINGS: The lumbar spine is well aligned. The lumbar vertebral bodies maintain normal height. The paraspinal soft tissues arenormal in appearance. The tip of the conus medullaris terminates at the L1 vertebral body level. There is loss of T2 disc signal at L4-L5 and L5-S1 levels. The upper lumbar disks are preserved. At the L5/S1 level, there is a right paracentral disc extrusionwhich extends approximately 14 mm caudad to the disc base and compresses the right S1 nerve root in the lateral recess. Additionally, thereis mild to moderate hypertrophic facet arthrosis. There is moderate bilateral neural foraminal stenosis. At the L4/5 level, there is disc degeneration and a small discbulge. Mild hypertrophic facet arthrosis is present. There is a small Schmorl's node in the inferior endplate of L4 and there are Modic type II endplate changes at the L4-L5 disc space. There is minimal central canal stenosis and mild bilateral neural foraminalstenosis. At the L3/4 level, the posterior disc contour is preserved. Thereis minimal facet arthrosis. No central canal or neural foraminal stenosis is present. IMPRESSION: 1. L5-S1: Right paracentral disc extrusion compresses the right S1 nerve root. Moderate bilateral foraminal stenosis. 2. L4-L5: Disc degeneration. Minimal central canal stenosis andmild bilateral foraminal stenosis Additional findings as discussed above. REPORT SIGNED IN OTHER VENDOR SYSTEM 04/30/2016 Reported By: Justus Myers MD CC: Transcribed Date/Time: 04/30/2016 (0923) Credit Collections Manager: Printed Date/Time: 08/28/2018 (9297) PAGE 1 Signed Report us Kirit Ashraf MD IMG MRI ORDERABLES Final Re sult documented in this encounter Visit Diagnoses Not on filedocumented in this encounter Care Teams Fur Examiner Relationship Specialty Start Date End Date Unknown, Provider, PCP - General 05/05/16 documented as of this encounter
--- OUTSIDE RECORDS SUMMARY | 2024-03-17 09:33 | XMS_ITS | Encounter Summary ---
[facility] Organization [facility] [address] Care Team Providers Care Proofsheet Corrector Name Role Phone Kirit Ashraf MD Primary Care Provider [phone]- [phone] Reason for Visit * Auth/Cert Specialty Diagnoses / Procedures Referred By Contac t Referred To Contact Diagnoses HNP L5-S1 Procedures PRO LAMINOTOMY, LUMBAR DISK, 1 INTRSP LAMINOTOMY, DECOMPRESSION, FORAMINOTOMY, LUMBAR (WRVU 13.18) Referral ID Status Reason Start Date Expiration Date Visits Re quested Visits Authorized [id number] 1 1 Encounter Details Date Type Department Care Team (Late st Contact Info) Description 05/20/2016 7:41 AM EST Anesthesia [place] [address] Doreen Romo MD [facility] [address] ANESTHES[place]OLOG[place] [address] Thaddeus Hardin CRNA [facility] DR [place]ESTHESIOLOG[place] [address] Anesthesia Record Procedure Summary Procedure Name Responsible Anesthesiologist Anesthesia Start Time Anesthesia Stop Time LAMINOTOMY, DECOMPRESSION, FORAMINOTOMY, LUMBAR (WRVU 12) (Right: Spine Lumbar) Doreen Romo MD 05/20/16 0741 05/20/16 0950 Events Date Time Event Comment 05/20/2016 0658 0741 AN Verify 0741 Start 0741 An Start Data 0745 An Induction 0748 An Intubation 0751 Anesthesia Ready 0942 Extubation/LMA Out 0942 an stop data 0950 Recovery or ICU Handoff Ev ent care was transferred to the destination unit staff after review of the patient's medical history, current anesthetic/surgical status and plan, according to the Provider Handoff Checklist. 0950 Stop Meds Name Total Midazolam 2 mg fentaNYL 250 mcg IV Lidocaine 100 mg Propofol 300 mg Rocuronium 70 mg Ondansetron 8 mg Dexamethasone 8 mg Neostigmine 5 mg Glycopyrrolate 0.8 mg Propofol INF 948.5 mg Ketamine 10 mg/mL 50 mg ceFAZolin (ANCEF) 3g in dextrose 5% 100 mL 3,000 mg Ketorolac 30 mg Lactated Ringers 700 mL * Agents Name O2 Air N2O Sevoflurane (et) Isoflurane (et) * Blood No blood administrations on file. Lines, Drains, and Airways Type Details Placement Removal (RETIRED) Peripheral IV Line - Single Lumen 05/20/16; 0633; metacarpal vein (top of hand), left; nezy-wru-ocofem catheter system; 18 gauge; Brianna Watters RN; distraction, intradermal injection, tolerated well, appears comfortable, age-appropriate response; metacarpal vein (top of hand), left; 05/20/16; 1202 05/20/16 0633 by Brianna Watters RN 05/20/16 1202 by Liang Dominguez RN ETT Mask Ventilation: Adjunct (2); ETT Type: Cuffed; ETT Size: 8 mm; Mac Blade: 3; Notes: Asleep, Stylette, Pre-O2; Attempts: 1; Laryngoscopy Grade: 2; ETT Placement Verified By: Auscultation, Capnometry, Visual; Secured at Teeth: 21 cm; Inserted by: Wilfred; Removal Date: 05/20/16; Removal Time: 0905/20/16 0753 by Thaddeus Hardin CRNA 05/20/16 0942 by Thaddeus Hardin CRNA Incision 05/20/16; 0815; back ; 11/11/21 (LDA cleanup utility RA#[id number]); 171 (LDA cleanup utility RA#[id number]) 05/20/16 08 by Irma Holbrook RN 11/11/21 171 by Rachelle Reeves documented in this encounter Social History Tobacco Use Types Packs/Day Years Used Date Smoking Tobacco: Former Smokeless Tobacco: Never Comments:quit 10 years ago Alcohol Use Standard Drinks/Week Comments Yes 6 (1 standard drink = 0.6 oz pur e alcohol) Sex and Gender Information Value Date Recorded Sex Assigned at Not on file Gender Identity Not on file Sexual Orientation Not on file documented as of this encounter OR Notes * Anesthesia Postprocedure Evaluation - Doreen Romo MD - 05/21/2016 7:56 PM EST [place] Department of Anesthesiology Post-procedure Note Patient: Glen Junior Procedure Summary Date Anesthesia Start Anesthesia Stop Room / Location 05/20/[address] [place] [address] OR [facility] MAIN OR Procedure Diagnosis Surgeon Responsible Provider LAMINOTOMY, DECOMPRESSION, FORAMINOTOMY, LUMBAR (WRVU 13.18) (Right Spine Lumbar) Lumbosacral radiculopathy at S1 (HNP L5-S1) Shamar Chaney MD Rassias, Athos J, MD All Anesthesia Providers: Anesthesiologist: Doreen Romo MD GROUNDS WORKER: Thaddeus Hardin CRNA Last (1hr) Vitals: BP Temp Pulse Resp SpO2 Patient Location: PACU/[facility] Level of Consciousness: Awake and Alert Pain Management: Satisfactory Analgesia PONV: None Cardiovascular Status: At Baseline and Hemodynamically Stable Respiratory Status: At Baseline and Room Air Postoperative Fluid Status: Intravascular EUvolemia Possible Anesthetic Complications: NONE apparent at time of evaluation Final Primary Anesthesia Type: General (The anesthetic type performed was the same as planned.) Comments: DOREEN ROMO MD * Anesthesia Preprocedure Evaluation - Doreen Romo MD - 05/20/2016 6:57 AM EST Pre-Anesthesia Evaluation for: Glen Junior a 35 y.o. male. Procedure(s): LAMINOTOMY, DECOMPRESSION, FORAMINOTOMY, LUMBAR (WRVU 13.18) Patient Active Problem List Diagnosis ??? Lumbosacral radiculopathy at S1 Past Medical History: Diagnosis Date ??? Lumbosacral radiculopathy at S1 04/25/2016 No past surgical history on file. Social History Substance Use Topics ??? Smoking status: Former Smoker ??? Smokeless tobacco: Never Used Comment: quit 10 years ago ??? Alcohol use 3.6 oz/week 6 Cans of beer per week History Drug Use ??? 3.00 per week ??? Special: Marijuana Allergies Allergen Reactions ??? Neosporin [Hydrocortisone] Rash Medications: MAR and/or home medications have been reviewed. Physical Exam: Vitals: 05/20/16 0614 BP: 139/85 Pulse: 87 Resp: 16 Temp: 37.2 ??C (99 ??F) Body mass index is 30.69 kg/(m^2). Height: 188 cm (6' 2) Weight - Scale: (!) 108.4 kg (239 lb) Airway Assessment: Mallampati: II Cardiovascular Assessment: Pulmonary Assessment: Dental Assessment: Misc Assessment: Anesthesia Plan: ASA 2 general, Informed Consent: PAT Staff Note documented in this encounter Plan of Treatment Not on file documented as of this encounter Visit Diagnoses Not on filedocumented in this encounter Administered Medications Inactive Administered Medications - up to 3 most recent administrations Medication Order MAR Action Action Date Dose Rate Site ceFAZolin (ANCEF) 3g in dextrose 5% 100 mL 3 g, Intravenous, EVERY 3 HOURS, 1 dose, First dose on Thu05/20/16 at 0630, Administer over 30 Minutes, Redose after 3 hours., Intra-Operative (Intra-Procedure), Indication for (Active or Suspected): Prophylaxis Given 05/20/2016 7:51 AM EST 3,000 mg dexamethasone (DECADRON) injection PRN, Starting on Thu05/20/16 at 0801, Until Thu05/20/16 at 0950, Anesthesia Intra-op, Routine Given 05/20/2016 8:01 AM EST 8 mg fentaNYL 50 mcg/mL multi-dose injection PRN, Starting on Thu05/20/16 at 0745, Until Thu05/20/16 at 0950, Pain, Anesthesia Intra-op, Routine Given 05/20/2016 7:55 AM EST 150 mcg Given 05/20/2016 7:45 AM EST 50 mcg Given 05/20/2016 7:44 AM EST 25 mcg glycopyrrolate (ROBINUL) multi-dose injection PRN, Starting on Thu05/20/16 at 0924, Until Thu05/20/16 at 0950, Anesthesia Intra-op, Routine Given 05/20/2016 9:24 AM EST 0.8 mg ketamine (KETALAR) 10 mg/mL bolus injection (Anesthesia) PRN, Starting on Thu05/20/16 at 0817, Until Thu05/20/16 at 0950, Anesthesia Intra-op Given 05/20/2016 8:54 AM EST 25 m g Given 05/20/2016 8:17 AM EST 25 mg ketorolac (TORADOL) injection PRN, Starting on Thu05/20/16 at 0916, Until Thu05/20/16 at 0950, Pain, Anesthesia Intra-op, Routine Given 05/20/2016 9:16 AM EST 30 mg lactated ringers infusion CONTINUOUS PRN, Starting on Thu05/20/16 at 0741, Until Thu05/20/16 at 0950, Anesthesia Intra-op New Bag 05/20/2016 7:41 AM EST lidocaine (PF) (XYLOCAINE) 100 mg/5 mL (2 %) injection PRN, Starting on Thu05/20/16 at 0745, Until Thu05/20/16 at 0950, Anesthesia Intra-op, Routine Given 05/20/2016 7:45 AM EST 100 mg midazolam (PF) (VERSED) 1 mg/mL multi-dose injection PRN, Starting on Thu05/20/16 at 0741, Until Thu05/20/16 at 0950, Sleep, Anesthesia Intra-op, Routine Given 05/20/2016 7:44 AM EST 1 mg Given 05/20/2016 7:41 AM EST 1 mg neostigmine (PROSTIGMINE) multi-dose injection PRN, Starting on Thu05/20/16 at 0924, Until Thu05/20/16 at 0950, Anesthesia Intra-op, Routine Given 05/20/2016 9:24 AM EST 5 mg ondansetron (ZOFRAN) injection PRN, Starting on Thu05/20/16 at 0923, Until Thu05/20/16 at 0950, Nausea, Anesthesia Intra-op, Routine Given 05/20/2016 9:23 AM EST 8 mg propofol (DIPRIVAN) 10 mg/mL bolus injection (Anesthesia) PRN, Starting on Thu05/20/16 at 0745, Until Tu05/20/16 at 0950, Anesthesia Intra-op Given 05/20/2016 7:47 AM EST 100 mg Given 05/20/2016 7:45 AM EST 200 mg propofol (DIPRIVAN) infusion CONTINUOUS PRN, Starting on Thu05/20/16 at 0751, Until Thu05/20/16 at 0950, Anesthesia Intra-op, Routine Rate/Dose Change 05/20/2016 9:09 AM EST 100 mcg/kg/min 65 mL/hr New Bag 05/20/2016 7:51 AM EST 75 mcg/kg/min 48.8 mL/hr rocuronium (ZEMURON) multi-dose injection PRN, Starting on Thu05/20/16 at 0745, Until Thu05/20/16 at 0950, Anesthesia Intra-op, Routine Given 05/20/2016 8:25 AM EST 20 mg Given 05/20/2016 7:45 AM EST 50 mg documented in this encounter Care Teams Proofsheet Corrector Relationship Specialty Start Date End Date Kirit Ashraf MD [facility] [address] [place] [address] PCP - General Family Medicine 04/23/16 02/23/18 documented as of this encounter
--- OUTSIDE RECORDS SUMMARY | 2024-03-17 09:33 | XMS_ITS | Encounter Summary ---
[place] [address] Care Team Providers Care Power Plant Electrician Name Role Phone Shiela Hirsch MD Primary Care Provider [phone] Encounter Details Date Type Department Care Team (Late st Contact Info) Description 03/20/2023 Refill Dermatology at [address] [place] [address] Camelia Greenfield, RN Social History Tobacco Use Types Packs/Day Years [...] on filedocumented in this encounter Care Teams Power Plant Electrician Relationship Specialty Start Date End Date Shiela Hirsch MD [address] [place] [address] PCP - General Family Medicine 03/20/23 documented as of this encounter
--- OUTSIDE RECORDS SUMMARY | 2024-03-17 09:33 | XMS_ITS | Clinical Summary ---
Author Organization [facility] Address [address] [place] [address] Care Team Providers Care Nursing Staffing Coordinator Name Role Phone Unknown, Provider Primary Care Provider Unava ilable Social History Tobacco Use Types Packs/Day Years Used Date Smoking Tobacco: Never Assessed Sex and Gender Information Value Date Recorded Sex Assigned at Not on file Legal Sex Male 18:13 EST Gender Identity Not on file Sexual Orientation Not on file Plan of Treatment Health Maintenance Due Date Last Done Comments Hepatitis C Screen 1980 Hepatitis B Vaccine (1 of 3 - 19+ 3-dose series) 08/25 COVID-19 Vaccine ( season) 2023 Care Teams Nursing Staffing Coordinator Relationship Specialty Start Date End Date Unknown, Provider, PCP - General 05/05/16
--- OUTSIDE RECORDS SUMMARY | 2024-03-17 09:33 | XMS_ITS | Encounter Summary ---
Author Organization [facility] Address [address] [place] [address] Care Team Providers Care Metal Sponge Making Machine Operator Name Role Phone Unavailable Primary Care Provider Unavailabl e Encounter Details Date Type Department Care Team (Latest Contact Info) Description 04/30/2016 19:42 EST - 04/30/2016 23:59 EST Hospital Encounter [facility] [address] [place] [address] Unknown, Provider, MD Discharge Disposition: Home or Self Care Social History Tobacco Use Types Packs/Day Years Used Date Smoking Tobacco: Never Assessed Sex and Gender Information Value Date Recorded Sex Assigned at Not on file Legal Sex Male 18:13 EST Gender Identity Not on file Sexual Orientation Not on file documented as of this encounter Discharge Disposition Disposition Code Departure Means Destination Home or Self Correction documented in this encounter Plan of Treatment Not on file documented as of this encounter Visit Diagnoses Not on filedocumented in this encounter
--- OUTSIDE RECORDS SUMMARY | 2024-03-17 09:33 | XMS_ITS | Encounter Summary ---
[place] [address] Care Team Providers Care Salt Refiner Name Role Phone Kirit Ashraf MD Primary Care Provider [phone] Encounter Details Date Type Department Care Team (Late st Contact Info) Description 05/28/2016 Notes [place] [id number] Melissa Miller LPN Social History Tobacco Use Types Packs/Day Years [...] as of this encounter Progress Notes * Melissa Miller LPN - 05/28/2016 1:26 PM EDT Images from the original note were not included. Glen called today to report some swelling at his incision site. I asked him to send pictures, the above are what he sent. He is doing well, but paperwork advised him to call if he noted swelling. H denies drainage, no redness,not particularly tender to touch, no fever. He is s/p LAMINOTOMY, DECOMPRESSION, FORAMINOTOMY, LUMBAR (WRVU 13.18) (Right) On 05-20-[address] Ch[address] Chaney is on surgery so Dr. Wilkes reviewed the above images and advised it is not uncommon to have a bit of swelling and to keep an eye on it. Will forward to Dr. Chaney for his review as well. documented in this encounter Plan of Treatment Not on file documented as of this encounter Visit Diagnoses Not on filedocumented in this encounter Care Teams Salt Refiner Relationship Specialty Start Date End Date Kirit Ashraf MD [address] [place] [address] PCP - General Family Medicine 04/23/16 02/23/18 documented as of this encounter
--- OUTSIDE RECORDS SUMMARY | 2024-03-17 09:33 | XMS_ITS | Encounter Summary ---
[place] [address] Care Team Providers Care Head Tennis Professional Name Role Phone Shiela Hirsch MD Primary Care Provider [phone] Reason for Visit * Reason Comments Follow-up Encounter Details Date Type Department Care Team (Late st Contact Info) Description 03/27/2023 3:30 PM EST Office Visit Dermatology at [place] [address] [facility] [place] [id number] Edward Dennis MD [address] [facility] D[facility]MATOLOGY [place], [place] [id number] Spongiotic dermatitis Social History Tobacco Use Types [...] Progress Notes * Edward Dennis MD - 03/27/2023 3:30 PM EST Problem: Spongiotic dermatitis Glen follows up for a 1 week check, a follow-up spongiotic dermatitis. He has seen significant improvement. The serous oozing of his arm has stopped and his arm has healed. The wet-to-dry's really helped as has the oral prednisone dosing. Physical examination reveals diffuse erythema of the entire right dorsal forearm but healing of theserous oozing and spongiotic papules that cause a formed entire large plaque over the right dorsal forearm. He still has a few papules on the left anterior krueger. Assessment plan: Eczematous dermatitis/allergic dermatitis unclear trigger, Much improved 1. Patient is now down to 40 mg of prednisone a day continue slow taper as outlined in last note 2. May discontinue wet-to-dry dressings. 3. Cut back on triamcinolone applications from twice to once a day. May also treat left anterior krueger 4. Patient congratulated on his wonderful response 5. Return to clinic care. CC: Shiela Hirsch MD documented in this encounter Plan of Treatment Not on file documented as of this encounter Visit Diagnoses Diagnosis Spongiotic dermatitis Contact dermatitis and other eczema, due to unspecified cause documented in this encounter Care Teams Head Tennis Professional Relationship Specialty Start Date End Date Shiela Hirsch MD [address] [place] [address] PCP - General Family Medicine 03/20/23 documented as of this encounter
--- OUTSIDE RECORDS SUMMARY | 2024-03-17 09:33 | XMS_ITS | Encounter Summary ---
[place] [address] Care Team Providers Care Induction Brazer Name Role Phone Kirit Ashraf MD Primary Care Provider [phone] Reason for Visit * Auth/Cert Specialty Diagnoses / Procedures Referred By Contac t Referred To Contact Diagnoses HNP L5-S1 Procedures PRO LAMINOTOMY, LUMBAR DISK, 1 INTRSP LAMINOTOMY, DECOMPRESSION, FORAMINOTOMY, LUMBAR (WRVU 13.18) Referral ID Status Reason Start Date Expiration Date Visits Re quested Visits Authorized [id number] 1 1 Encounter Details Date Type Department Care Team (Latest Contact Info) Description 05/20/2016 5:42 AM EST - 05/20/2016 12:10 PM [facility] Hospital Encounter [place] [address] Shamar Chaney MD [facility] [place] [address] Lumbosacral radiculopathy at S1 (Primary Dx) Discharge Disposition: Home Social History Tobacco Use [...] please contact the Spine Center Prescription Lineat [phone]. PRESCRIPTION RENEWAL REQUEST CAN TAKE UP TO 3 DAYS TO PROCESS SO PLEASE PLAN ACCORDINGLY. Some narcotic pain medications can not be called into your pharmacy and require the prescription to be picked up or mailed to your pharmacy. Call [phone] to speak with a Spine Center Nurse. 2. The pain medication you are on can cause constipation, so increase your intake of fluids and fiber while you are taking them. You should also take an syoi-ztt-ctcvdwr stool softener, colace or senna, to facilitate [...] any questions call: Clinical issues, nurse questions: [phone] Medication renewal: [phone] Appointments for : Ritu: [phone] Future Appointments Date Time Provider Department Center 06/04/2016 10:40 AM Shamar Chaney MD [facility] documented in this encounter Medications at [...] ambulate without difficulty and feels ready for D/Senior Controls Analyst home at this time. AVS reviewed with [...] Note ?? Patient Name: Glen Junior : [id number] MR#: [id number] ?? Case Date: 05/20/2016 ?? Surgeon: Surgeon(s) [...] planned surgery, and site according to the [facility] Protocol. The back was then prepped using [...] of the case. Shamar Chaney MD MS Bid Clerk - Orthopedic Spine Surgery / [facility] Ocean Clam Boat Captain - Department of Orthopedic Surgery / Academics and Research Clinical Trial Head - [facility] 05/20/2016 * Brief Op Note - Shamar Chaney MD - 05/20/2016 9:25 AM EST Brief Operative Note Patient Name: Glen Junior : [id number] MR#: [id number] Case Date: 05/20/2016 Surgeon: Surgeon(s) and Role: [...] Given 05/20/2016 10:28 AM EST 1,000 mg oxyCODONE (ROXICODONE) immediate release tablet 10 mg 10 mg, Oral, EVERY 4 HOURS PRN, Starting on Thu05/20/16 at 1021, Until Thu05/20/16 at 1202, Pain, moderate pain (4-6), For moderate pain (4-6). Do not exceed 15 mg in 4 hours. If pain not relieved, call provider., PACU Recovery, Routine Given 05/20/2016 10:28 AM EST 10 mg documented in this encounter Active and Recently [...] bacitracin injection (CANCELED) ONCE PRN, Starting on Thu05/20/16 at 0837, Until Thu05/20/16 at 1410, Intra-Operative (Intra-Procedure), Routine 0837 (Given - Provid er: Shamar Chaney MD - Comment: Mixed in 1 L NS administered via bulb syringe.) BUpivacaine-EPINEPHrine 0.25 %-1:200,000 injection (CANCELED) ONCE PRN, Starting on Thu05/20/16 at [...] PRN, Starting on Thu05/20/16 at 0837, Until 05/20/16 at 1410, Intra-Operative (Intra-Procedure) 0837 (Given - Provid er: Shamar Chaney MD - Comment: Mixed with 1 Gelfoam.) Linked Groups Order Group 1: oxyCODONE (ROXICODONE) immediate release tablet 5 mg (CANCELED) 5 mg, Oral, EVERY 4 HOURS PRN, Starting on Thu05/20/16 at 1021, Until Thu05/20/16 at 1202, Pain, mild pain (1-3), For mild pain (1-3). Do not exceed 15 mg in 4 hours. If pain not relieved, call provider, PACU Recovery, Routine Or oxyCODONE (ROXICODONE) immediate release tablet 10 mg (CANCELED)Jump to med 10 mg, Oral, EVERY 4 HOURS PRN, Starting on e 05/20/16 at 1021, Until 05/20/16 at 1202, Pain, moderate pain (4-6), For moderate pain (4-6). Do not exceed 15 mg in 4 hours. If pain not relieved, call provider., PACU Recovery, Routine Or oxyCODONE (ROXICODONE) immediate release tablet 15 mg (CANCELED) 15 mg, Oral, EVERY 4 HOURS PRN, Starting on Thu05/20/16 at 1021, Until 05/20/16 at 1202, Pain, severe pain, PACU Recovery, Routine documented in this encounter Care Teams Induction Brazer Relationship Specialty Start Date End Date Kirit Ashraf MD [address] [place] [address] PCP - General Family Medicine 04/23/16 02/23/18 documented as of this encounter
--- OUTSIDE RECORDS SUMMARY | 2024-03-17 09:33 | XMS_ITS | Encounter Summary ---
[place] [address] Care Team Providers Care Avionics Manager Name Role Phone Kirit Ashraf MD Primary Care Provider [phone] Reason for Referral * Physical Therapy (Routine) - Specialty Diagnoses / Procedures Referred By Contac t Referred To Contact Physical Therapy Diagnoses Lumbosacral radiculopathy at S1 Shamar Chaney MD [facility] [place] [address] Referral ID Status Reason Start Date Expiration Date V isits Requested Visits Authorized [id number] Evaluate and Treat 05/27/2016 11/23/2016 12 12 Reason for Visit * Reason Onset Date Comments Other 05/26/2016 Encounter Details Date Type Department Care Team (Late st Contact Info) Description 05/26/2016 Telephone [place] [address] Kim Mayorga RN Other Social History Tobacco Use Types Packs/Day Years [...] encounter Miscellaneous Notes * Telephone Encounter - Kim Mayorga RN - 05/26/2016 10:31 AM EDT Received call from patient stating that he is out of his 100 mg Gabapentin, he is taking one tab 2 times daily. Patient is s/p 05/20/16 L5-S1 disc excision. He reports some right foot and calf pain. Heis also requesting referral for PT locally to assist with return to work. Above refill request discussed with LAURA Zuniga, he authorized refill for Gabapentin 100 mg 2times daily. Patient aware refill was completed, reviewed dose and frequency and patient stated understanding. Request for PT was discussed with Dr. Chaney, he authorized referral. Patient was contacted and informed, he request referral be faxed to [phone], copy also mailed to patient's home address. documented in this encounter Plan of Treatment Scheduled Referrals Name Type Priority Associated Diagnoses Orde r Schedule Referral to Physical Therapy Outpatient Referral Routine Lumbosacral radiculopathy at S1 Ordered: 05/27/2016 documented as of this encounter Visit Diagnoses Diagnosis Lumbosacral radiculopathy at S1 Thoracic or lumbosacral neuritis or radiculitis, unspecified documented in this encounter Care Teams Avionics Manager Relationship Specialty Start Date End Date Kirit Ashraf MD [address] [place] [address] PCP - General Family Medicine 04/23/16 02/23/18 documented as of this encounter
--- OUTSIDE RECORDS SUMMARY | 2024-03-17 09:33 | XMS_ITS | Encounter Summary ---
[place] [address] Care Team Providers Care Quick Print Operator Name Role Phone Kirit Ashraf MD Primary Care Provider [phone]- [phone] Encounter Details Date Type Department Care Team (Late st Contact Info) Description 05/28/2016 Telephone [place] [phone] Melissa Miller LPN Social History Tobacco Use [...] encounter Miscellaneous Notes * Telephone Encounter - Melissa Miller LPN - 05/28/2016 4:05 PM EDT Pt called to report swelling at surgical site see progress note by this board writer today 05-28-16. Pictures in progress note, reviewed by Dr. Chaney, no concerns at this time it is not uncommon but keep an eye on it. Patient in agreement with this plan. documented in this encounter Plan of Treatment Not on file documented as of this encounter Visit Diagnoses Not on filedocumented in this encounter Care Teams Quick Print Operator Relationship Specialty Start Date End Date Kirit Ashraf MD [address] [place] [address] PCP - General Family Medicine 04/23/16 02/23/18 documented as of this encounter
--- OUTSIDE RECORDS SUMMARY | 2024-03-17 09:33 | XMS_ITS | Encounter Summary ---
[place] [address] Care Team Providers Care Supervisor Wrapping Room Name Role Phone Kirit Ashraf MD Primary Care Provider [phone] Reason for Visit * Reason Comments Right Hip Pain Right Leg Pain Low Back Pain * Consultation (MARIELLE) - Closed Specialty Diagnoses / Procedures Referred By Contac t Referred To Contact Orthopaedics Diagnoses lumbar radiculopathy, right Kirit Ashraf MD [address] [place] [address] [facility] [address] [place] [id number] Referral ID Status Reason Start Date Expiration Date V isits Requested Visits Authorized [id number] Closed Consult, [facility] 04/23/2016 04/23/2017 1 1 Encounter Details Date Type Department Care Team (Latest Contact Info) Description 04/25/2016 2:40 PM EST Office Visit [place] [address] Sarah Lopez MD [facility] [place] [address] Lumbosacral radiculopathy at S1; Herniated lumbar intervertebral [...] Sign Reading Time Taken Comments Blood Pressure 149/90 04/25/2016 2:11 PM EST Pulse - - Temperature - - Respiratory Rate - - Oxygen Saturation - - Inhaled Oxygen Concentration - - Weight 106.6 kg (235 lb) 04/25/2016 2:11 PM EST Height 190.5 cm (6' 3) 04/25/2016 2:11 PM EST Body Mass Index 29.37 04/25/2016 2:11 PM EST documented in this encounter Progress Notes * Sarah Lopez MD - 04/25/2016 2:40 PM EST Images from the original note were not included. Kirit Ashraf MD [address] [address] RE: Glen Junior April 25, [address] Ashraf, I had the pleasure seeing this patient for surgical evaluation at [facility]. DIAGNOSIS: 1. Right lower extremity S1 radiculopathy, severe with weakness. 2. History of chronic back pain baseline. PRIOR SPINE PROCEDURES: None. RISK FACTORS FOR SPINE SURGERY: DMI 29.4, nondiabetic. Does not use narcotics. Former smoker. DURATION OF SMPTOMS: Approximately 4 weeks. PRIOR TREATMENTS: Prednisone, hydrocodone. Another prescription for prednisone, gabapentin. Has not had epidural injections. Has not been able to tolerated physical therapy. SUMMARY AND PLAN: This is a healthy appearing 35-year-old male with acute onset of right lower extremity radicular symptoms about 4 weeks ago. He does have a history of chronic low back pain, but this is mild compared to his current symptoms. He has been managed by both Dr. Ashraf and the ER. He has been given 2 prescriptions for prednisone, which he has taken. Hydrocodone and gabapentin, which have not decreased his symptoms significantly. His SUZI is greater than 60. At this point due to his significant symptoms, as he is unable to sit, has difficulty walking, cannot sleep, and as this has not improved with multiple treatments, I will request authorization for an MRI of his lumbar spine without contrast. After that is performed, I will further discuss conservative versus operative management. The diagnosis is likely a herniated disk, given his overall history and presentation. It is most likely at L5-S1. We discussed the risks and benefits of surgical intervention, including the goals. The goal would be to decrease his buttock and leg pain. It may or may help his weakness in his right lower extremity and gastroc, or the numbness in the lateral aspect of his foot. It will not help in any particular way with his chronic low back pain. The risks of surgical intervention include recurrent disk herniation, spinal fluid leak, and worsening of symptoms. There are other less common risks. At this point, given the severity of his pain and lack of improvement he wishes to consider surgical intervention. His past medical history, past surgical history, medications, allergies, social history, family history, review of systems were updated and reviewed in the e-DH today. He really has no significant past medical history. Social history as noted above. No known drug allergies. Medications included the gabapentin, prednisone, triamcinolone and ibuprofen. Review of systems noncontributory. PHYSICAL EXAMINATION: This is an uncomfortable appearing male. he cannot sit. He has a positive straight leg raise at 20 degrees recreating his leg pain and numbness into his foot. Contralateral straight leg raise is positive for recreating posterior hamstring pain on the contralateral side. He has 4-5 strength in his gastroc, unable to do a single heel raise on that side, compared to the contralateral side. He has no pain with internal rotation of his hips. Distal pulse is intact. No evidence of atrophy. Subtle neck and fine hand motor functions intact. Imaging was to be obtained today including x-rays. No MRI or x-rays could be reviewed at the time of visit. See below for patient reported outcomes, as well as pain mapping. PLAN: As outlined above. [facility] Response Trends Patient-reported scores: myD-H Spine Questionnaire responses 04/25/2016 VR36 - Physical Function (Range: 0-100) 21.9 VR36 - Bodily Pain (Range: 0-100) 23.3 VR36 - PCS (Range: 0-100) 32.1 VR36 - MCS (Range: 0-100) 43.7 Oswestry Disability Index (Range: 0-100) 68 (Crippled) * Sarah Lopez MD - 04/25/2016 2:40 PM EST Called patient concerning MRI results. [facility] DOS 04/30/2016. Findings: Large Right L5-S1 HNP with inferior migration. Spoke with patient by phone. Discussed r/b of surgery. Wished to proceed. Request authorization for a Right L5-S1 MED given lack of improvement with conservative treatment, weakness, and severity of symptoms. Sarah Lopez MD 04/30/2016 documented in this encounter Miscellaneous Notes * Addendum Note - Sarah Lopez MD - 04/30/2016 5:07 PM ESTAddended by: SARAH LOPEZ on: 04/30/2016 05:07 PM Modules accepted: Orders, SmartSet documented in this encounter Plan of Treatment Not on file documented as of this encounter Procedures Procedure Name Priority Date/Time Associated Diagnosis Comments LAMINOTOMY, DECOMPRESSION, FORAMINOTOMY, LUMBAR Routine 04/30/2016 4:43 PM EST Lumbosacral radiculopathy at S1 documented in this encounter Results * (ABNORMAL) Prothrombin Time (05/02/2016 10:50 AM EST) Prothrombin Time 11.8(L) 12.0 - 15.0 sec [facility] Comment: An INR <2.0 indicates adequate [...] International Normalization Ratio 0.8(L) 0.9 - 1.1 [facility] Blood specimen (specimen) 05/02/2016 10:50 AM EST 05/02/2016 11:01 AM EST Narrative Resulting Agency Comment Spec In Lab Sarah Lopez MD HEMATOLOGY ORDERABLE S [facility] [place] [address] * (ABNORMAL) Basic Metabolic Panel (non-fasting) (05/02/2016 10:50 AM EST) Glucose 100 65 - 199 mg/dL [facility] Comment:Diabetes: >=200 mg/d L plus symptoms Blood Urea Nitrogen 17 10 - 20 mg/dL [facility] Creatinine 0.82 0.80 - 1.50 mg/dL [facility] Comment: Please note that the pediatric reference intervals supplied above were not validated at [facility]. Results from pediatric patients should be interpreted in conjunction to the patient's age, height and muscle mass. Sodium 140 135 - 145 mmol/L [facility] Potassium 4.3 3.5 - 5.0 mmol/L [facility] Comment: Please note: ??Patients with WBC >100,000 may have falsely elevated Potassium levels. ??For accurate Potassium quantification in these patients send serum separator tube (gold top) for subsequent determinations. ??Contact the Clinical Chemistry Laboratory if there are any questions. Chloride 101 98 - 107 mmol/L [facility] Carbon Dioxide 22 22 - 31 mmol/L [facility] Anion Gap 17(H) 5 - 15 mmol/L [facility] Calcium 9.9 8.5 - 10.5 mg/dL [facility] Est Glomerular Filtration Rate >60 >=60 [facility] Comment: This estimated GFR (eGFR) [...] the following links into your internet browser. [email or web address] Blood specimen (specimen) 05/02/2016 10:50 AM EST 05/02/2016 11:01 AM EST Narrative Resulting Agency Comment Spec In Lab Sarah Lopez MD CHEMISTRY ORDERABLES [facility] [place] [address] documented in this encounter Visit Diagnoses Diagnosis Lumbosacral radiculopathy at S1 Thoracic or lumbosacral neuritis or radiculitis, unspecified Herniated lumbar intervertebral disc Displacement of lumbar intervertebral disc without myelopathy documented in this encounter Care Teams Supervisor Wrapping Room Relationship Specialty Start Date End Date Kirit Ashraf MD [address] [place] [address] PCP - General Family Medicine 04/23/16 02/23/18 documented as of this encounter
[2024-03-17 16:12] LABS: Anion Gap 12.1 mmol/L (3-11); BUN 17 mg/dL (7-18); CREATININE 0.9 mg/dL (0.70-1.30); Calcium 9.4 mg/dL (8.5-10.1); Calculated LDL 191 mg/dL (<100); Chloride 105 mmol/L (98-107); Cholesterol 291 mg/dL (<200); Estimated GFR 107.33 (mL/min/1.73m2); Glucose 110 mg/dL (74-106); HDL Cholesterol 54 mg/dL (40-60); Potassium 4.5 mmol/L (3.5-5.1); Sodium 140 mmol/L (136-145); Triglyceride 233 mg/dL (<150)
[2024-03-17 16:54] LABS: CO2 20.9 mmol/L (21.0-32.0)
== END 2024-03-17 09:31 | disposition home or self-care (01) ==
LOC: NCHCN 09:30
PROVIDERS: PCP Nurse Practitioner Family; Visit Provider Family Medicine
DX: I10 Essential (primary) hypertension (principal); E78.2 Mixed hyperlipidemia
CPT/HCPCS: 80048; 80061